=== PATIENT | male | born 1970 | race African-American/Black ===

== ENCOUNTER 2022-10-02 00:20 | Emergency (ER) | payer OTHER ==
[~2022-10-02] VITALS: Ht 175.3 cm; Wt 82.9 kg
[2022-10-02] MEDS ORDERED: KETOROLAC TROMETH 30 MG/ML 1ML VIAL IM ONE (02:00)
== END 2022-10-02 02:13 | disposition home or self-care (01) ==
LOC: ER 00:20
DX: G89.29 Other chronic pain (principal); M54.59 Other low back pain; J45.909 Unspecified asthma, uncomplicated; F17.210 Nicotine dependence, cigarettes, uncomplicated
CPT/HCPCS: 74176; 96372; 99285; J1885

== ENCOUNTER 2022-10-14 23:25 | Emergency (ER) | payer MEDICAID ==
[~2022-10-14] VITALS: Ht 175.3 cm; Wt 83.6 kg
[2022-10-15 00:20] VITALS: BP 126/84
[2022-10-15 01:32] LABS: Urine Bacteria NONE SEEN /hpf (None Seen); Urine Blood Negative /uL (Negative); Urine Mucus FEW (None Seen); Urine Specific Gravity 1.031 (1.001-1.035); Urine WBC 1 /hpf (0 - 3)
== END 2022-10-15 01:48 | disposition home or self-care (01) ==
LOC: ER 23:25
DX: N50.812 Left testicular pain (principal)
CPT/HCPCS: 81001

== ENCOUNTER 2022-11-02 21:34 | Emergency (ER) | payer MEDICAID ==
[~2022-11-02] VITALS: Ht 160 cm; Wt 83.0 kg
[2022-11-03] MEDS ORDERED: FLUT1SPR9 (00:37)
[2022-11-03] MEDS ORDERED: CYCL-837 PO (00:37)
[2022-11-03] MEDS ORDERED: IBUP800T27 PO (00:37)
[2022-11-03] MEDS ORDERED: KETOROLAC TROMETH 60MG/2ML VIAL IM ONE (00:45)
[2022-11-03 05:46] VITALS: BP 136/86
== END 2022-11-03 01:17 | disposition home or self-care (01) ==
LOC: ER 21:34
DX: G89.29 Other chronic pain (principal); M54.89 Other dorsalgia; J30.9 Allergic rhinitis, unspecified; Z79.899 Other long term (current) drug therapy
CPT/HCPCS: 72100; 96372; 99283; J1885

== ENCOUNTER 2022-12-14 21:00 | Emergency (ER) | payer MEDICAID ==
[~2022-12-14] VITALS: Ht 175.3 cm; Wt 84.0 kg
[~2022-12-14 21:00] MED LIST: ALBUAER3 IN; AMOX875T4 PO; AUG875T PO; BACL10TA PO; CIPRSUS OT; COR10OTS OT; COROSUS LEFT EAR; CYCL-837 PO; CYCL-839 PO; FLUT1SPR9; IBU600T PO; IBUP-1456 PO; PRED20TA2 PO
[2022-12-14] MEDS ORDERED: ACETAMINOPHEN 500 MG TAB PO ONE (21:30)
[2022-12-15] MEDS ORDERED: KETOROLAC TROMETH 30 MG/ML 1ML VIAL IM ONE (02:00)
[2022-12-15 03:12] VITALS: BP 108/60
== END 2022-12-15 03:17 | disposition home or self-care (01) ==
LOC: ER 21:05 → MERGE 21:05 → ER 12-15 03:16
DX: R51.9 Headache, unspecified (principal); Z98.890 Other specified postprocedural states; Z79.1 Long term (current) use of non-steroidal anti-inflammatories (NSAID); Z79.899 Other long term (current) drug therapy
CPT/HCPCS: 96372; 99283; J1885

== ENCOUNTER 2023-05-21 02:30 | Emergency (ER) | payer MEDICAID ==
[~2023-05-21] VITALS: Ht 175.3 cm; Wt 82.7 kg
[~2023-05-21 02:30] MED LIST changes: +IBUP-1454 PO; +IBUP-1455 PO
[2023-05-21 02:40] VITALS: BP 141/83; PULSE 81; RESP 17; TEMP 98.1; O2SAT 81
[2023-05-21] MEDS ORDERED: IBUP1TAB5 PO (03:17)
[2023-05-21] MEDS ORDERED: CYCL-611 PO (03:17)
== END 2023-05-21 03:46 | disposition home or self-care (01) ==
LOC: ER 02:30
DX: M54.42 Lumbago with sciatica, left side (principal); M54.41 Lumbago with sciatica, right side; M62.830 Muscle spasm of back; Z76.0 Encounter for issue of repeat prescription

== ENCOUNTER 2023-06-16 02:10 | Emergency (ER) | payer MEDICAID ==
[~2023-06-16] VITALS: Ht 175.3 cm; Wt 86.0 kg
[~2023-06-16 02:10] MED LIST changes: +CYCL-611 PO; +IBUP1TAB5 PO
[2023-06-16] MEDS ORDERED: KETOROLAC TROMETH 30 MG/ML 1ML VIAL IM ONE (03:30)
[2023-06-16 04:45] VITALS: BP 135/91; PULSE 84; RESP 19; TEMP 97.8; O2SAT 98
== END 2023-06-16 04:46 | disposition home or self-care (01) ==
LOC: ER 02:10
DX: G43.909 Migraine, unspecified, not intractable, without status migrainosus (principal); H92.03 Otalgia, bilateral; Z79.1 Long term (current) use of non-steroidal anti-inflammatories (NSAID); Z79.2 Long term (current) use of antibiotics; Z79.899 Other long term (current) drug therapy
CPT/HCPCS: 96372; 99283; J1885

== ENCOUNTER 2023-08-03 07:46 | Emergency (ER) | payer MEDICAID ==
[~2023-08-03] VITALS: Ht 175.3 cm; Wt 81.7 kg
[2023-08-03 08:04] VITALS: BP 124/81; PULSE 72; RESP 18; TEMP 98.6; O2SAT 98
[2023-08-03] MEDS ORDERED: MELO7.5T7 PO (09:09)
[2023-08-03] MEDS ORDERED: CYCL-837 PO (09:09)
== END 2023-08-03 09:11 | disposition home or self-care (01) ==
LOC: ER 07:46
DX: M54.16 Radiculopathy, lumbar region (principal)

== ENCOUNTER 2023-09-02 22:18 | Emergency (ER) | payer MEDICAID ==
[~2023-09-02] VITALS: Ht 175.3 cm; Wt 78.3 kg
[~2023-09-02 22:18] MED LIST changes: +MELO7.5T7 PO
[2023-09-03] MEDS: KETOROLAC TROMETH 60MG/2ML VIAL IM ONE (01:00)
[2023-09-03] MEDS ORDERED: BACL10TA PO (01:02)
[2023-09-03] MEDS ORDERED: HYDR-4902 PO (01:02)
[2023-09-03 01:24] VITALS: BP 144/85; PULSE 65; RESP 16; TEMP 98.2; O2SAT 95
[2023-09-03] MEDS: DexAMETHasone SOD PHOS 10MG/1ML VIAL INJ IM ONE (01:54)
[2023-09-03] MEDS: HYDROcodone-ACET 5/325MG TAB PO ONE (01:54)
== END 2023-09-03 04:07 | disposition home or self-care (01) ==
LOC: ER 22:18
DX: G89.29 Other chronic pain (principal); M25.512 Pain in left shoulder; M25.511 Pain in right shoulder; M54.50 Low back pain, unspecified; Z79.1 Long term (current) use of non-steroidal anti-inflammatories (NSAID); Z79.2 Long term (current) use of antibiotics; Z79.899 Other long term (current) drug therapy
CPT/HCPCS: 73030; 96372; 99284; J1100; J1885

== ENCOUNTER 2023-10-14 19:41 | Emergency (ER) | payer MEDICAID ==
[~2023-10-14] VITALS: Ht 175.3 cm; Wt 79.5 kg
[~2023-10-14 19:41] MED LIST changes: +GABA-339 PO; +HYDR-4902 PO; +OFL50TS OT
[2023-10-14 19:50] VITALS: BP 142/94; PULSE 107; RESP 18; TEMP 96.2
[2023-10-14 21:40] VITALS: O2SAT 100
[2023-10-14] MEDS ORDERED: CYCL-839 PO (21:44)
[2023-10-14] MEDS ORDERED: IBUP-1456 PO (21:44)
[2023-10-14] MEDS ORDERED: HYDR-4902 PO (21:44)
[2023-10-14] MEDS: HYDROcodone-ACET 10/325MG TAB PO ONE (21:58)
== END 2023-10-14 22:17 | disposition home or self-care (01) ==
LOC: ER 19:41
DX: G89.29 Other chronic pain (principal); M54.50 Low back pain, unspecified; W01.0XXA Fall on same level from slipping, tripping and stumbling without subsequent striking against object, initial encounter; Y93.89 Activity, other specified; Y92.89 Other specified places as the place of occurrence of the external cause; Y99.8 Other external cause status

== ENCOUNTER 2023-11-17 22:26 | Emergency (ER) | payer MEDICAID | END 2023-11-17 23:37 | disposition left against medical advice (07) | LOC: ER 22:26 | DX: H92.01 Otalgia, right ear (principal); Z53.21 Procedure and treatment not carried out due to patient leaving prior to being seen by health care provider ==

== ENCOUNTER 2024-01-20 15:19 | Emergency (ER) | payer MEDICAID | END 2024-01-20 15:55 | disposition left against medical advice (07) | LOC: ER 15:19 | DX: H92.09 Otalgia, unspecified ear (principal); Z53.21 Procedure and treatment not carried out due to patient leaving prior to being seen by health care provider ==

== ENCOUNTER 2024-07-07 07:56 | Emergency (ER) | payer MEDICAID ==
[~2024-07-07] VITALS: Ht 175.3 cm; Wt 79.4 kg
[2024-07-07 08:36] VITALS: BP 134/87; PULSE 83; RESP 20; TEMP 97.5; O2SAT 98
--- NOTE | 2024-07-07 08:42 | ED.PDOC ---
Back pain HPI HPI Comments A 53 YEAR OLD MALE PRESENTS TO THE ED WITH COMPLAINT OF LOWER BACK PAIN THAT RADIATES DOWN LEFT LEG. PATIENT STATES HE HAS BEEN EXPERIENCING LOWER BACK PAIN THAT RADIATES DOWN HIS LEFT LEG OFF AND ON FOR THE PAST 2 YEARS WITH WORSENING PAIN OVER THE PAST 3 DAYS. PATIENT DENIES SADDLE ANESTHESIA, URINARY INCONTINENCE, BOWEL INCONTINENCE, FEVER, CHILLS, SHORTNESS OF BREATH, CHEST PAIN, ABDOMINAL PAIN, NAUSEA, VOMITING, HEADACHE, OR OTHER COMPLAINTS. NO OTHER SYMPTOMS OR MODIFYING FACTORS AT THIS TIME. PATIENT IS ALERT, ORIENTED X 4, AND HAS STEADY GAIT. Chief Complaint: Back Pain Time Seen by MD: 08:09 Primary Care Provider: NONE Reviewed Notes: Nurses Notes, Medications, Allergies Allergies: Coded Allergies: NO KNOWN ALLERGIES (Unverified , 10/02/22) Home Meds Active Scripts Hydrocodone-Acetaminophen (Hydrocodone Bitartrate/AC 5-325 mg) 1 Tab Tab, 1 TAB PO Q6HPRN PRN, #6 TAB As needed for severe pain Prov:VALDO ACOSTA PAC 10/14/23 Cyclobenzaprine Hcl (Cyclobenzaprine Hcl) 10 Mg Tab, 1 TAB PO Q8HR, #15 TAB as needed for pain Prov:VALDO ACOSTA PAC 10/14/23 Ibuprofen (Ibuprofen) 800 Mg Tab, 1 TAB PO TID, #30 TAB Prov:VALDO ACOSTA PAC 10/14/23 Ibuprofen Micronized (Ibuprofen) 600 Mg Tab, 1 TAB PO Q6HPRN PRN, #20 TAB As needed for pain Prov:BROOKE CARRILLO Q CHEMIST ASSISTANT 09/12/23 Ofloxacin (Otic) (FLOXIN OTIC) [address], 5 DROP OT BID for 10 Days, #10 ML Prov:BROOKE CARRILLO Q CHEMIST ASSISTANT 09/12/23 Amoxicillin & Pot Clavulanate (AUGMENTIN TABLET) 875 Mg Tb, 1 TAB PO BID for 10 Days, #20 TAB Prov:BROOKE CARRILLO Q CHEMIST ASSISTANT 09/12/23 Gabapentin (Gabapentin) 600 Mg Tab, 1 TAB PO BID, #30 TAB Prov:MAXIME VELEZ PA 09/08/23 Ibuprofen (Ibuprofen) 800 Mg Tab, 1 TAB PO TID, #30 TAB Prov:MAXIME VELEZ PA 09/08/23 Baclofen (Baclofen) 10 Mg Tab, 10 MG PO TID, #15 TAB As needed for muscle spasm Prov:BROOKE CARRILLO CHEMIST ASSISTANT 09/03/23 Ibuprofen Micronized (Ibuprofen) 600 Mg Tab, 1 TAB PO Q6HPRN PRN, #20 TAB As needed for mild to moderate pain Prov:BROOKE CARRILLO CHEMIST ASSISTANT 09/03/23 Cyclobenzaprine Hcl (Cyclobenzaprine Hcl) 5 Mg Tab, 1 TAB PO QPM for 30 Days, #30 TAB 0 Refills Prov:GEORGIA TREADWELL CHEMIST ASSISTANT 08/03/23 Meloxicam (Meloxicam) 7.5 Mg Tab, 1 TAB PO DAILY for 30 Days, #30 TAB 0 Refills Prov:GEORGIA TREADWELL CHEMIST ASSISTANT 08/03/23 Cyclobenzaprine HCl (Cyclobenzaprine Hydrochlo) 10 Mg Tab, 1 TAB PO Q8HPRN PRN, #15 TAB As needed for muscle spasm Prov:BROOKE CARRILLO CHEMIST ASSISTANT 05/21/23 Ibuprofen Micronized (Ibuprofen) 600 Mg Tab, 1 TAB PO Q6HPRN PRN, #20 TAB as needed for pain Prov:BROOKE CARRILLO CHEMIST ASSISTANT 05/21/23 Ibuprofen (Ibuprofen) 600 Mg Tab, 1 TAB PO TID, #30 TAB As needed for pain Prov:BROOKE CARRILLO CHEMIST ASSISTANT 02/22/23 Jpykckoa-Tqpufneix-My (Otic) (Cortisporin Otic Soln) [address], 4 DROP OT QID for 7 Days, #1 BOTTLE 0 Refills Prov:SHIRA MARTIN 02/11/23 Ibuprofen Micronized (Ibuprofen) 800 Mg Tab, 800 MG PO Q6HP PRN, #30 TAB 0 Refills Prov:SHIRA MARTIN 02/11/23 Ibuprofen (Ibuprofen) 800 Mg Tab, 1 TAB PO TID PRN, #30 TAB 0 Refills Prov:TRAN FOURNIER 12/20/22 Cyclobenzaprine Hcl (Cyclobenzaprine Hcl) 5 Mg Tab, 1 TAB PO QPM PRN, #14 TAB 0 Refills Prov:TRAN FOURNIER 12/20/22 Cyclobenzaprine Hcl (Cyclobenzaprine Hcl) 10 Mg Tab, 1 TAB PO BID, #10 TAB as needed for musclce spasm Prov:BROOKE CARRILLO CHEMIST ASSISTANT 12/13/22 Ibuprofen Micronized (MOTRIN TABLET) 600 Mg Tb, 1 TAB PO TID PRN, #20 TAB as needed for pain Prov:YUAN CARRILLOA Q CHEMIST ASSISTANT 12/13/22 Stbvvkhd-Zsmwcpfuy-Bh (Otic) (Cortisporin Otic Soln) [address], 1 DROP OT QID for 10 Days, #1 DROP Prov:YUAN CARRILLOA Q CHEMIST ASSISTANT 12/13/22 Amoxicillin & Pot Clavulanate (AUGMENTIN TABLET) 875 Mg Tb, 1 TAB PO BID for 10 Days, #20 TAB Prov:CARRILLODOMENICALDA Q CHEMIST ASSISTANT 12/13/22 Fluticasone Propionate (Nasal) (Flonase Allergy Relief Ch) 50 Mcg/Act Spr, 2 S PRAYS NA BID PRN, #1 SPRAY 0 Refills Prov:TRAN FOURNIER 11/03/22 Ibuprofen (Ibuprofen) 800 Mg Tab, 1 TAB PO TID PRN, #30 TAB 0 Refills Prov:TRAN FOURNIER 11/03/22 Cyclobenzaprine Hcl (Cyclobenzaprine Hcl) 5 Mg Tab, 1 TAB PO QPM, #14 TAB 0 Refills Prov:TRAN FOURNIER 11/03/22 Exrvhuha-Ztlgnliml-Zj (Otic) (Cortisporin Otic Susp) [address], 3 DROP LEFT EAR TID for 7 Days, #10 ML Prov:TONY NGUYEN DO 08/31/22 Baclofen (Baclofen) 10 Mg Tab, 10 MG PO BID, #20 TAB Prov:MAXIME VELEZ 08/19/22 Ciprofloxacin-Hydrocortisone (Cipro Hc 0.2-1 %) 1 Maryjo Maryjo, 3 DROP OT BID, #5 ML Prov:MAXIME VELEZ 08/05/22 Albuterol Sulfate (VENTOLIN MDI) 90 Mcg Ih, 2 PUFF IN Q4HPRN, #1 INH 0 Refills Prov:TRAN FOURNIER 05/25/22 Prednisone (Prednisone) 20 Mg Tab, 20 MG PO BID for 5 Days, #10 MG 0 Refills Prov:TRAN FOURNIER 05/25/22 Amoxicillin & Pot Clavulanate (Amoxicillin/Potassium Cla) 875 Mg Tab, 1 TAB PO BID for 7 Days, #14 TAB 0 Refills Prov:TRAN FOURNIER 05/25/22 Ibuprofen Micronized (MOTRIN TABLET) 600 Mg Tb, 600 MG PO TID PRN for 7 Days, #21 TAB *Black box warning-NSAIDS can increase risk of IN & hypertension, GI irritation, ulceration, bleed, perferation. Do not use post cardiac surgery. Use short duration/lowest effective dose. Prov:ARAVIND HARPER MD 10/08/21 Information Source: Patient Mode of Arrival: Ambulatory Timing: Days Duration: Since onset, Days Location of Back pain: (B) Lumbar Radiates to: Anterior: (L) Buttocks, (L) Calf, (L) Thigh Radiates to: Posterior: (L) Buttocks, (L) Calf, (L) Thigh Radiates to: Medial: (L) Buttocks, (L) Calf, (L) Thigh Radiates to: Lateral: (L) Buttocks, (L) Calf, (L) Thigh Severity: Moderate Prehospital treatment: None Quality: Aching, Burning, Cramping Onset: Spontaneous History of: Chronic Back Pain Modifying Factors: Movement Associated signs and symptoms: None Past Medical History Past Medical History (Other): CHRONIC LOWER BACK PAIN Surgical History: Denies all surgeries Family History Family History: Reviewed,noncontributory to illness Social History Smoker: Cigarettes Alcohol: Denies ETOH Use Drugs: Denies Drug Use Lives In: Home Constitutional: denies: chills, diaphoresis, fatigue, fever, malaise, sweats, weakness, others EENTM: denies: blurred vision, double vision, ear bleeding, ear discharge, ear drainage, ear pain, ear ringing, eye pain, eye redness, hearing loss, mouth pain, mouth swelling, nasal discharge, nose bleeding, nose congestion, nose pain, photophobia, tearing, throat pain, throat swelling, voice changes, others Respiratory: denies: cough, hemoptysis, orthopnea, SOB at rest, shortness of breath, SOB with excertion, stridor, wheezing, others Cardiovascular: denies: chest pain, dizzy spells, diaphoresis, Dyspnea on exertion, edema, irregular heart beat, left arm pain, lightheadedness, palpitations, PND, syncope, others Gastrointestinal: denies: abdomen distended, abdominal pain, blood streaked bowels, constipated, diarrhea, dysphagia, difficulty swallowing, hematemesis, melena, nausea, poor appetite, poor fluid intake, rectal bleeding, rectal pain, vomiting, others Genitourinary: denies: burning, dysuria, flank pain, frequency, hematuria, incontinence, penile discharge, penile sore, pain, testicle pain, testicle swelling, urgency, others Neurological: denies: dizziness, fainting, headache, left sided numbness, left sided weakness, numbness, paresthesia, pre-existing deficit, right sided numbness, right sided weakness, seizure, speech problems, tingling, tremors, weakness, others Musculoskeletal: reports: back pain (LOWER BACK PAIN THAT RADIATES DOWN LEFT LEG), muscle pain; denies: gout, joint pain, joint swelling, muscle stiffness, neck pain, others Integumetry: denies: bruises, change in color, change in hair/nails, dryness, laceration, lesions, lumps, rash, wounds, others Allergic/Immunocompromised: denies: Difficulty Healing, Frequent Infections, Hives, Itching, others Hematologic/Lymphatic: denies: anemia, blood clots, easy bleeding, easy bruising, swollen glands, others Endocrine: denies: excessive hunger, excessive sweating, excessive thirst, excessive urination, flushing, intolerance to cold, intolerance to heat, unexplained weight gain, unexplained weight loss, others Psychiatric: denies: anxiety, bipolar disorder, depression, hopeless, panic disorder, schizophrenia, sleepless, suicidal, others All Other Systems: Reviewed and Negative Physical Exam General Appearance: No Apparent Distress, Normal HEENT: Normal ENT Inspection, PERRL/EOMI, Pharynx Normal, TMs Normal Neck: Full Range of Motion, Non-Tender, Normal, Normal Inspection Respiratory: Chest Non-Tender, Lungs Clear, No Accessory Muscle Use, No Respiratory Distress, Normal Breath Sounds Cardiovascular: No Edema, No JVD, No Murmur, No Gallop, Normal Peripheral Pulses, Regular Rate/Rhythm Breast Exam: Deferred Gastrointestinal: No Organomegaly, Non Tender, No Pulsatile Mass, Normal Bowel Sounds, Soft Genitalia: Deferred Pelvic: Deferred Rectal: Deferred Extremities: No calf tenderness, Normal capillary refill, Normal inspection, Normal range of motion, Non-tender, No pedal edema Musculoskeletal : Location: Bilateral Extremity Location: Back Apperance: Tenderness: Moderate (MUSCLE SPASM ON LOWER BACK, NO BONY TENDER NESS, SWELLING AND DEFORMITY. ) Neurologic: Alert, electric deicer inspector II-XII nml as Tested, No Motor Deficits, Normal Affect, Normal Mood, No Sensory Deficits Cerebellar Function: Normal Reflexes: Normal Skin: Dry, Normal Color, Warm Peripheral Pulses: 2+ carotid (R), 2+ carotid (L) Lymphatic: No Adenopathy Was a procedure done? Was a procedure done?: No Back Pain Differential Dx Differential Diagnosis: Musculoskeletal Pain Other Differential Diagnosis DDD, LUMBAR RADICULOPATHY, SCIATICA X-Ray, Labs, Meds, VS Vital Signs Date Time Temp Pulse Resp B/P (MAP) Pulse Ox O2 Delivery O2 Flow Rate FiO2 07/07/24 08:36 83 20 98 Room Air 07/07/24 08:36 97.5 83 20 134/87 (103) 98 97.5 07/07/24 08:02 97.5 83 20 134/87 (103) 98 Current Medications Medications (Trade) Dose Ordered Sig/Jennifer Route Start Time Stop Time Status Last Admin Ketorolac Tromethamine (Toradol Injection) 60 mg ONCE ONCE IM 07/07/24 08:45 07/07/24 08:46 DC 07/07/24 08:48 INDICATION: LOW BACK PAIN TO LOWER LEG COMPARISON: XY LUMBAR SPINE 3 VIEW on DOS: 11/02/22 TECHNIQUE: 3 views of the lumbar spine were obtained. FINDINGS: The lumbar vertebral alignment is normal. The intervertebral disc spaces are well-maintained. No significant facet arthropathy is noted. No acute fracture, vertebral compression deformity or aggressive osseous lesions. The paravertebral soft tissues are grossly unremarkable. IMPRESSION: No acute fracture. ATED BY: ELINA BAGLEY MD DICTATED DATE/TIME: 07/07/2450 SIGNED BY: ELINA BAGLEY MD SIGNED DATE/TIME: 07/07/2450 CC: X-Ray, Labs, Meds, VS Comment EXTERNAL MEDICAL RECORDS REVIEWED: [NONE] INDEPENDENT HISTORIANS: [NONE] SOCIAL DETERMINANTS OF HEALTH: [CURRENTLY HOMELESS] LABS ORDERED: NONE REVIEWED AND INTERPRETED RESULTS: NONE IMAGING ORDERED: XR L-SPINE TREATMENTS ORDERED: TORADOL 60 MG IM, FOOD AND DRINK GIVEN TO PATENT. PROCEDURES PERFORMED: NONE CRITICAL CARE TIME: NONE I HAVE DISCUSSED THE PATIENT WITH THE ATTENDING PHYSICIAN DR. WREN AND HE AGREES WITH THE PATIENT'S PLAN OF CARE AND DISPOSITION. BASED ON HISTORY OF PRESENT ILLNESS, AND PHYSICAL EXAM, PATIENT WILL BE DISCHARGED HOME. DISCUSSED PLAN FOR DISCHARGE HOME WITH RX []. MEDICATION WARNINGS GIVEN. SHARED DECISION MAKING: PATIENT INSTRUCTED TO FOLLOW UP WITH PRIMARY CARE PROVIDER IN 1-2 DAYS FOR RE-EVALUATION OF SYMPTOMS. PATIENT VERBALIZES U NDERSTANDING TO RETURN TO ED FOR NEW OR WORSENING SYMPTOMS OR IF FOLLOW UP WITH PCP CANNOT BE OBTAINED. PATIENT FEELS COMFORTABLE GOING HOME AT THIS TIME. ALL QUESTIONS ADDRESSED AT TIME OF DISCHARGE. Images Reviewed?: Images reviewed and evaluated by me Time of 1ST Reevaluation: 09:04 Reevaluation 1ST: Improved Patient Education/Counseling: Diagnosis, Treatment, Need For Follow Up Family Education/Counseling: Diagnosis, Treatment, Need For Follow Up Medical Screening: No EMC Exist At This Time Departure 1 Departure Time of Disposition: 09:04 Impression: Primary Impression: DDD (degenerative disc disease), lumbar Qualified Codes: M51.362 - Other intervertebral disc degeneration, lumbar region with discogenic back pain and lower extremity pain Additional Impressions: Lumbar radiculopathy Acute exacerbation of chronic low back pain Disposition: 01 HOME / SELF CARE / HOMELESS Condition: Stable Additional Instructions: FOLLOW-UP WITH PCP IN 1 TO 2 DAYS FOR MRI STUDY. TAKE MEDICATIONS PRESCRIBED. RETURN TO ED FOR ANY NEW OR WORSENING SYMPTOMS. e-Prescriptions Baclofen (Baclofen) 10 Mg Tab 10 MG PO BID, #20 TAB Prov: MAXIME VELEZ 07/07/24 Ibuprofen (Ibuprofen) 800 Mg Tab 1 TAB PO TID, #30 TAB Prov: MAXIME VELEZ 07/07/24 Discharged With: Self Critical Care Note Critical Care Time?: No Stability Stability form required: No I personally scribed for MAXIME VELEZ ([email or web address]) on 07/07/24 at 08:42. Electronically submitted by Trae Gonsales ([email or web address]). I personally scribed for MAXIME VELEZ ([email or web address]) on 07/07/24 at 09:00. Electronically submitted by Trae Gonsales ([email or web address]). MAXIME VELEZ Jul 07, 2024 08:42
[2024-07-07] MEDS: KETOROLAC TROMETH 60MG/2ML VIAL IM ONE (08:48)
--- NOTE | 2024-07-07 08:53 | DVH ---
INDICATION: LOW BACK PAIN TO LOWER LEG COMPARISON: XY LUMBAR SPINE 3 VIEW on DOS: 11/02/22 TECHNIQUE: 3 views of the lumbar spine were obtained. FINDINGS: The lumbar vertebral alignment is normal. The intervertebral disc spaces are well-maintained. No significant facet arthropathy is noted. No acute fracture, vertebral compression deformity or aggressive osseous lesions. The paravertebral soft tissues are grossly unremarkable. IMPRESSION: No acute fracture.
== END 2024-07-07 09:11 | disposition home or self-care (01) ==
LOC: ER 07:56
DX: M51.16 Intervertebral disc disorders with radiculopathy, lumbar region (principal); M54.50 Low back pain, unspecified; F17.210 Nicotine dependence, cigarettes, uncomplicated; G89.29 Other chronic pain
CPT/HCPCS: 72100; 96372; 99283; J1885

== ENCOUNTER 2024-08-27 03:56 | Emergency (ER) | payer MEDICAID ==
[~2024-08-27] VITALS: Ht 175.3 cm; Wt 83.7 kg
--- NOTE | 2024-08-27 04:22 | ED.PDOC ---
Back pain HPI HPI Comments PATIENT COMES WITH C/C OF ACUTE ON CHRONIC LOWER BACK PAIN. PATIENT STATES HE FELL AND HURT IT A FEW MONTHS AGO BUT THE PAIN GO IS WORSE TODAY. PATIENT REPORTS THAT HE HAS CHRONIC BACK PAIN AND PREVIOUS HERNIA REPAIR. DENIES NUMBNESS, WEAKNESS, SADDLE ANESTHESIA, LOSS OF BOWEL OR BLADDER CONTROL. Chief Complaint: Back Pain Time Seen by MD: 04:02 Primary Care Provider: NONE Reviewed Notes: Nurses Notes, Medications, Allergies Allergies: Coded Allergies: NO KNOWN ALLERGIES (Unverified , 10/02/22) Home Meds Active Scripts Baclofen (Baclofen) 10 Mg Tab, 10 MG PO BID, #20 TAB Prov:MAXIME VELEZ 07/07/24 Ibuprofen (Ibuprofen) 800 Mg Tab, 1 TAB PO TID, #30 TAB Prov:MAXIME VELEZ 07/07/24 Hydrocodone-Acetaminophen (Hydrocodone Bitartrate/AC 5-325 mg) 1 Tab Tab, 1 TAB PO Q6HPRN PRN, #6 TAB As needed for severe pain Prov:VALDO ACOSTA PAC 10/14/23 Cyclobenzaprine Hcl (Cyclobenzaprine Hcl) 10 Mg Tab, 1 TAB PO Q8HR, #15 TAB as needed for pain Prov:VALDO ACOSTA PAC 10/14/23 Ibuprofen (Ibuprofen) 800 Mg Tab, 1 TAB PO TID, #30 TAB Prov:VALDO ACOSTA PAC 10/14/23 Ibuprofen Micronized (Ibuprofen) 600 Mg Tab, 1 TAB PO Q6HPRN PRN, #20 TAB As needed for pain Prov:BROOKE CARRILLO Q [employer]PECT[employer] 09/12/23 Ofloxacin (Otic) (FLOXIN OTIC) [address], 5 DROP OT BID for 10 Days, #10 ML Prov:BROOKE CARRILLO Q [employer] 09/12/23 Amoxicillin & Pot Clavulanate (AUGMENTIN TABLET) 875 Mg Tb, 1 TAB PO BID for 10 Days, #20 TAB Prov:BROOKE CARRILLO Q [employer] 09/12/23 Gabapentin (Gabapentin) 600 Mg Tab, 1 TAB PO BID, #30 TAB Prov:MAXIME VELEZ 09/08/23 Ibuprofen (Ibuprofen) 800 Mg Tab, 1 TAB PO TID, #30 TAB Prov:MAXIME VELEZ 09/08/23 Baclofen (Baclofen) 10 Mg Tab, 10 MG PO TID, #15 TAB As needed for muscle spasm Prov:BROOKE CARRILLO Q [employer] 09/03/23 Ibuprofen Micronized (Ibuprofen) 600 Mg Tab, 1 TAB PO Q6HPRN PRN, #20 TAB As needed for mild to moderate pain Prov:BROOKE CARRILLO Q [employer] 09/03/23 Cyclobenzaprine Hcl (Cyclobenzaprine Hcl) 5 Mg Tab, 1 TAB PO QPM for 30 Days, #30 TAB 0 Refills Prov:GEORGIA TREADWELL [employer] 08/03/23 Meloxicam (Meloxicam) 7.5 Mg Tab, 1 TAB PO DAILY for 30 Days, #30 TAB 0 Refills Prov:GEORGIA TREADWELL [employer] 08/03/23 Cyclobenzaprine HCl (Cyclobenzaprine Hydrochlo) 10 Mg Tab, 1 TAB PO Q8HPRN PRN, #15 TAB As needed for muscle spasm Prov:CARRILLOBROOKE [employer] 05/21/23 Ibuprofen Micronized (Ibuprofen) 600 Mg Tab, 1 TAB PO Q6HPRN PRN, #20 TAB as needed for pain Prov:BROOKE CARRILLO Q [employer] 05/21/23 Ibuprofen (Ibuprofen) 600 Mg Tab, 1 TAB PO TID, #30 TAB As needed for pain Prov:BROOKE CARRILLO [employer] 02/22/23 Ougvzhqw-Bvuxlyfmu-Zp (Otic) (Cortisporin Otic Soln) [address], 4 DROP OT QID for 7 Days, #1 BOTTLE 0 Refills Prov:SHIRA MARTIN 02/11/23 Ibuprofen Micronized (Ibuprofen) 800 Mg Tab, 800 MG PO Q6HP PRN, #30 TAB 0 Refills Prov:SHIRA MARTIN 02/11/23 Ibuprofen (Ibuprofen) 800 Mg Tab, 1 TAB PO TID PRN, #30 TAB 0 Refills Prov:TRAN FOURNIER 12/20/22 Cyclobenzaprine Hcl (Cyclobenzaprine Hcl) 5 Mg Tab, 1 TAB PO QPM PRN, #14 TAB 0 Refills Prov:TRAN FOURNIER 12/20/22 Cyclobenzaprine Hcl (Cyclobenzaprine Hcl) 10 Mg Tab, 1 TAB PO BID, #10 TAB as needed for musclce spasm Prov:BROOKE CARRILLO Q [employer] 12/13/22 Ibuprofen Micronized (MOTRIN TABLET) 600 Mg Tb, 1 TAB PO TID PRN, #20 TAB as needed for pain Prov:BROOKE CARRILLO Q [employer] 12/13/22 Ysbheufm-Iktlfdujm-Zy (Otic) (Cortisporin Otic Soln) [address], 1 DROP OT QID for 10 Days, #1 DROP Prov:BROOKE CARRILLO Q [employer] 12/13/22 Amoxicillin & Pot Clavulanate (AUGMENTIN TABLET) 875 Mg Tb, 1 TAB PO BID for 10 Days, #20 TAB Prov:BROOKE CARRILLO Q INS[employer] 12/13/22 Fluticasone Propionate (Nasal) (Flonase Allergy Relief Ch) 50 Mcg/Act Spr, 2 SPRAYS NA BID PRN, #1 SPRAY 0 Refills Prov:TRAN FOURNIER 11/03/22 Ibuprofen (Ibuprofen) 800 Mg Tab, 1 TAB PO TID PRN, #30 TAB 0 Refills Prov:TRAN FOURNIER 11/03/22 Cyclobenzaprine Hcl (Cyclobenzaprine Hcl) 5 Mg Tab, 1 TAB PO QPM, #14 TAB 0 Refills Prov:TRAN FOURNIER 11/03/22 Tfffyeny-Ocorccuuv-Qy (Otic) (Cortisporin Otic Susp) [address], 3 DROP LEFT EAR TID for 7 Days, #10 ML Prov:TONY NGUYEN DO 08/31/22 Baclofen (Baclofen) 10 Mg Tab, 10 MG PO BID, #20 TAB Prov:MAXIME VELEZ 08/19/22 Ciprofloxacin-Hydrocortisone (Cipro Hc 0.2-1 %) 1 Maryjo Maryjo, 3 DROP OT BID, #5 ML Prov:MAXIME VELEZ 08/05/22 Albuterol Sulfate (VENTOLIN MDI) 90 Mcg Ih, 2 PUFF IN Q4HPRN, #1 INH 0 Refills Prov:TRAN FOURNIER 05/25/22 Prednisone (Prednisone) 20 Mg Tab, 20 MG PO BID for 5 Days, #10 MG 0 Refills Prov:TRAN FOURNIER 05/25/22 Amoxicillin & Pot Clavulanate (Amoxicillin/Potassium Cla) 875 Mg Tab, 1 TAB PO BID for 7 Days, #14 TAB 0 Refills Prov:TRAN FOURNIER 05/25/22 Ibuprofen Micronized (MOTRIN TABLET) 600 Mg Tb, 600 MG PO TID PRN for 7 Days, #21 TAB *Black box warning-NSAIDS can increase risk of PA & hypertension, GI irritation, ulceration, bleed, perferation. Do not use post cardiac surgery. Use short duration/lowest effective dose. Prov:ARAVIND HARPER MD 10/08/21 Past Medical History PAST MEDICAL HISTORY: Denies Surgical History: Denies all surgeries Family History Family History: Reviewed,noncontributory to illness Social History Smoker: Cigarettes Alcohol: Denies ETOH Use Drugs: Denies Drug Use Lives In: Home Constitutional: denies: chills, diaphoresis, fatigue, fever, malaise, sweats, weakness, others EENTM: denies: blurred vision, double vision, ear bleeding, ear discharge, ear drainage, ear pain, ear ringing, eye pain, eye redness, hearing loss, mouth pain, mouth swelling, nasal discharge, nose bleeding, nose congestion, nose pain, photophobia, tearing, throat pain, throat swelling, voice changes, others Respiratory: denies: cough, hemoptysis, orthopnea, SOB at rest, shortness of breath, SOB with excertion, stridor, wheezing, others Gastrointestinal: denies: abdomen distended, abdominal pain, blood streaked bowels, constipated, diarrhea, dysphagia, difficulty swallowing, hematemesis, melena, nausea, poor appetite, poor fluid intake, rectal bleeding, rectal pain, vomiting, others Genitourinary: denies: burning, dysuria, flank pain, frequency, hematuria, incontinence, penile discharge, penile sore, pain, testicle pain, testicle swelling, urgency, others Neurological: denies: dizziness, fainting, headache, left sided numbness, left sided weakness, numbness, paresthesia, pre-existing deficit, right sided numbness, right sided weakness, seizure, speech problems, tingling, tremors, weakness, others Musculoskeletal: reports: back pain; denies: gout, joint pain, joint swelling, muscle pain, muscle stiffness, neck pain, others Integumetry: denies: bruises, change in color, change in hair/nails, dryness, laceration, lesions, lumps, rash, wounds, others Allergic/Immunocompromised: denies: Difficulty Healing, Frequent Infections, Hives, Itching, others Hematologic/Lymphatic: denies: anemia, blood clots, easy bleeding, easy bruising, swollen glands, others Endocrine: denies: excessive hunger, excessive sweating, excessive thirst, excessive urination, flushing, intolerance to cold, intolerance to heat, unexplained weight gain, unexplained weight loss, others Psychiatric: denies: anxiety, bipolar disorder, depression, hopeless, panic disorder, schizophrenia, sleepless, suicidal, others Physical Exam General Appearance: No Apparent Distress, Normal HEENT: Pharynx Normal Neck: Full Range of Motion, Non-Tender Respiratory: Lungs Clear, No Respiratory Distress, Normal Breath Sounds Cardiovascular: No Murmur, Normal Peripheral Pulses, Regular Rate/Rhythm Breast Exam: Deferred Gastrointestinal: No Organomegaly, Non Tender, Soft Genitalia: Deferred Pelvic: Deferred Rectal: Deferred Extremities: Normal capillary refill, Normal inspection, Normal range of motion, Non-tender, No pedal edema Musculoskeletal : Location: Bilateral Extremity Location: Back (TENDERNESS PALPATED OVER L3-L5 SPINE WITHOUT CREPITUS OR STEP-OFFS NOTED SPASMS RIGHT AND LEFT PARASPINAL MUSCLES WITH MODERATE TENDERNESS STRAIGHT LEG RAISE NEGATIVE BILATERAL STRENGTH SENSORY MOTION INTACT POSITIVE PEDAL PULSES NEGATIVE FOOT DROP BILATERAL) Apperance: Normal Neurologic: Alert, stitcher tape controlled machine II-XII nml as Tested, No Motor Deficits, Normal Affect, Normal Mood, No Sensory Deficits Cerebellar Function: Normal Reflexes: Normal Skin: Dry, Normal Color, Warm Lymphatic: No Adenopathy Was a procedure done? Was a procedure done?: No Back Pain Differential Dx Differential Diagnosis: Fracture, Musculoskeletal Pain X-Ray, Labs, Meds, VS Vital Signs Date Time Temp Pulse Resp B/P (MAP) Pulse Ox O2 Delivery O2 Flow Rate FiO2 08/27/24 04:35 98.1 93 18 136/93 (107) 97 98.1 08/27/24 04:35 93 18 97 Room Air 08/27/24 04:16 98.0 93 18 136/93 (107) 97 Current Medications Medications (Trade) Dose Ordered Sig/Jennifer Route Start Time Stop Time Status Last Admin Acetaminophen/ Hydrocodone Bitart ([place] 5/325MG Tab) 2 tab ONCE ONCE PO 08/27/24 05:00 08/27/24 05:01 DC 08/27/24 05:02 Ketorolac Tromethamine (Toradol Injection) 60 mg ONCE ONCE IM 08/27/24 05:00 08/27/24 05:01 DC 08/27/24 05:02 X-Ray, Labs, Meds, VS Comment PATIENT GIIMPRESSION: Vertebral body height and alignment is maintained. Intervertebral disc space narrowing at L5-S1 with small osteophyte and endplate changes. Likely bilateral neural foraminal stenosis. Sacroiliac joints appear patent. Possible sclerosis more pronounced along the right sacroiliac joint. NO NOTED ACUTE FRACTURES OR SUBLUXATION YOU ON CHRONIC LUMBAR BACK PAIN. PATIENT GIVEN TORADOL 60 MG IM AND NORCO 10 MG P.O. REPORTS IMPROVEMENT PAIN AND FUNCTION REQUESTING DISCHARGE AT THIS TIME. SCRIPT BACLOFEN 10 MG B.I.D. P.R.N. AND MEDROL DOSEPAK. ADVISED TO TAKE MEDICATION PRESCRIBED SIDE EFFECTS DISCUSSED. ADVISED TO ALTERNATE BETWEEN ICE AND HEAT. FOLLOW UP WITH HIS PCP ONCE 2 DAYS CONSIDER REFERRAL TO PAIN MANAGEMENT. ER RETURN PRECAUTIONS GIVEN INCREASING PAIN, NUMBNESS, WEAKNESS, LOSS OF BOWEL OR BLADDER CONTROL OR SADDLE ANESTHESIA. PATIENT INDICATES UNDERSTANDING AGREES WITH DISCHARGE PLAN OF CARE. Time of 1ST Reevaluation: : Reevaluation 1ST: Improved Patient Education/Counseling: Diagnosis, Treatment, Prognosis, Need For Follow Up Family Education/Counseling: No Family Present Departure 1 Departure Time of Disposition: : Impression: Primary Impression: Neural foraminal stenosis of lumbar spine Additional Impression: Acute exacerbation of chronic low back pain Disposition: 01 HOME / SELF CARE / HOMELESS Condition: Stable e-Prescriptions Methylprednisolone (Medrol Dosepak) 4 Mg Gustavo 4 MG PO UD for 6 Days, #21 TAB UAD Prov: MONTY WATKINS 08/27/24 Baclofen (Baclofen) 10 Mg Tab 10 MG PO BID PRN for 7 Days, #14 TAB Prov: MONTY WATKINS 08/27/24 Discharged With: Self Critical Care Note Critical Care Time?: No Stability Stability form required: MONTY Cabrera Aug 27, 2024 04:22
[2024-08-27 04:35] VITALS: BP 136/93; PULSE 93; RESP 18; TEMP 98.1; O2SAT 97
[2024-08-27] MEDS: KETOROLAC TROMETH 60MG/2ML VIAL IM ONE (05:02)
[2024-08-27] MEDS: HYDROcodone-ACET 5/325MG TAB PO ONE (05:02)
--- NOTE | 2024-08-27 05:15 | DVH ---
EXAM: XY LUMBAR SPINE 3 VIEW HISTORY: INJURY/PAIN COMPARISON: XY LUMBAR SPINE 3 VIEW on DOS: 07/07/24, XY LUMBAR SPINE 3 VIEW on DOS: 11/02/22 TECHNIQUE: AP and lateral views of the lumbar spine and spot lateral of the lumbosacral junction were performed. IMPRESSION: Vertebral body height and alignment is maintained. Intervertebral disc space narrowing at L5-S1 with small osteophyte and endplate changes. Likely bilateral neural foraminal stenosis. Sacroiliac joint s appear patent. Possible sclerosis more pronounced along the right sacroiliac joint.
[2024-08-27] MEDS ORDERED: BACL10TA PO (05:20)
[2024-08-27] MEDS ORDERED: METH4PAK PO (05:20)
== END 2024-08-27 05:38 | disposition home or self-care (01) ==
LOC: ER 03:56
DX: M48.061 Spinal stenosis, lumbar region without neurogenic claudication (principal); M54.50 Low back pain, unspecified; G89.29 Other chronic pain; F17.210 Nicotine dependence, cigarettes, uncomplicated; Z79.899 Other long term (current) drug therapy; Z79.52 Long term (current) use of systemic steroids; Z79.1 Long term (current) use of non-steroidal anti-inflammatories (NSAID)
CPT/HCPCS: 72100; 96372; 99283; J1885

== ENCOUNTER 2024-09-30 01:47 | Emergency (ER) | payer MEDICAID ==
[~2024-09-30] VITALS: Ht 175.3 cm; Wt 80.6 kg
[~2024-09-30 01:47] MED LIST changes: +AMOX875T3 PO
[2024-09-30 01:57] VITALS: BP 139/81; PULSE 85; RESP 16; TEMP 98.3; O2SAT 95
[2024-09-30] MEDS ORDERED: IBUP-1455 PO (02:02)
[2024-09-30] MEDS ORDERED: HYDR-4902 PO (02:02)
--- NOTE | 2024-09-30 02:03 | ED.PDOC ---
Back pain HPI HPI Comments This patient is a 53-year-old male who arrives the ED today for evaluation of low back pain concerns. Patient states he has a history of low back pain issues including sciatica. Patient has had multiple imaging studies in the past. Patient denies any recent traumatic event, but states that the pain came on yesterday has been relatively unrelenting. Patient denies any fever nausea or vomiting. Time Seen by MD: 01:49 Primary Care Provider: LIYAH Reviewed Notes: [employer] Teacher Notes Allergies: Coded Allergies: NO KNOWN ALLERGIES (Unverified , 10/02/22) Home Meds Active Scripts Ibuprofen (Ibuprofen) 800 Mg Tab, 1 TAB PO TID, #30 TAB Prov:MAXIME VELEZ 09/14/24 Amoxicillin Trihydrate (Amoxicillin) 875 Mg Tab, 1 TAB PO BID, #20 TAB Prov:MAXIME VELEZ 09/14/24 Baclofen (Baclofen) 10 Mg Tab, 10 MG PO BID, #20 TAB Prov:MAXIME VELEZ 07/07/24 Ibuprofen (Ibuprofen) 800 Mg Tab, 1 TAB PO TID, #30 TAB Prov:MAXIME VELEZ 07/07/24 Hydrocodone-Acetaminophen (Hydrocodone Bitartrate/AC 5-325 mg) 1 Tab Tab, 1 TAB PO Q6HPRN PRN, #6 TAB As needed for severe pain Prov:VALDO ACOSTA [facility] 10/14/23 Cyclobenzaprine Hcl (Cyclobenzaprine Hcl) 10 Mg Tab, 1 TAB PO Q8HR, #15 TAB as needed for pain Prov:VALDO ACOSTA [facility] 10/14/23 Ibuprofen (Ibuprofen) 800 Mg Tab, 1 TAB PO TID, #30 TAB Prov:VALDO ACOSTA [facility] 10/14/23 Ibuprofen Micronized (Ibuprofen) 600 Mg Tab, 1 TAB PO Q6HPRN PRN, #20 TAB As needed for pain Prov:BROOKE CARRILLO Q [employer]IST[employer] 09/12/23 Ofloxacin (Otic) (FLOXIN OTIC) [address], 5 DROP OT BID for 10 Days, #10 ML Prov:YUAN CARRILLOA Q [employer]IST[employer] 09/12/23 Amoxicillin & Pot Clavulanate (AUGMENTIN TABLET) 875 Mg Tb, 1 TAB PO BID for 10 Days, #20 TAB Prov:BROOKE CARRILLO [employer] 09/12/23 Gabapentin (Gabapentin) 600 Mg Tab, 1 TAB PO BID, #30 TAB Prov:MAXIME VELEZ 09/08/23 Ibuprofen (Ibuprofen) 800 Mg Tab, 1 TAB PO TID, #30 TAB Prov:MAXIME VELEZ 09/08/23 Baclofen (Baclofen) 10 Mg Tab, 10 MG PO TID, #15 TAB As needed for muscle spasm Prov:BROOKE CARRILLO Anton[employer] 09/03/23 Ibuprofen Micronized (Ibuprofen) 600 Mg Tab, 1 TAB PO Q6HPRN PRN, #20 TAB As needed for mild to moderate pain Prov:BROOKE CARRILLO Anton[employer] 09/03/23 Cyclobenzaprine Hcl (Cyclobenzaprine Hcl) 5 Mg Tab, 1 TAB PO QPM for 30 Days, #30 TAB 0 Refills Prov:GEORGIA TREADWELL [employer] 08/03/23 Meloxicam (Meloxicam) 7.5 Mg Tab, 1 TAB PO DAILY for 30 Days, #30 TAB 0 Refills Prov:GEORGIA TREADWELL [employer] 08/03/23 Cyclobenzaprine HCl (Cyclobenzaprine Hydrochlo) 10 Mg Tab, 1 TAB PO Q8HPRN PRN, #15 TAB As needed for muscle spasm Prov:CARRILLOBROOKE Antony [employer] 05/21/23 Ibuprofen Micronized (Ibuprofen) 600 Mg Tab, 1 TAB PO Q6HPRN PRN, #20 TAB as needed for pain Prov:LORENABROOKE Antony [employer] 05/21/23 Ibuprofen (Ibuprofen) 600 Mg Tab, 1 TAB PO TID, #30 TAB As needed for pain Prov:BROOKE CARRILLO [employer] 02/22/23 Kmzerlsa-Nrnfanmkq-Nz (Otic) (Cortisporin Otic Soln) [address], 4 DROP OT QID for 7 Days, #1 BOTTLE 0 Refills Prov:SHIRA MARTIN 02/11/23 Ibuprofen Micronized (Ibuprofen) 800 Mg Tab, 800 MG PO Q6HP PRN, #30 TAB 0 Refills Prov:SHIRA MARTIN 02/11/23 Ibuprofen (Ibuprofen) 800 Mg Tab, 1 TAB PO TID PRN, #30 TAB 0 Refills Prov:TRAN FOURNIER 12/20/22 Cyclobenzaprine Hcl (Cyclobenzaprine Hcl) 5 Mg Tab, 1 TAB PO QPM PRN, #14 TAB 0 Refills Prov:TRAN FOURNIER 12/20/22 Cyclobenzaprine Hcl (Cyclobenzaprine Hcl) 10 Mg Tab, 1 TAB PO BID, #10 TAB as needed for musclce spasm Prov:LORENABROOKE Q ASSISTANT [employer] 12/13/22 Ibuprofen Micronized (MOTRIN TABLET) 600 Mg Tb, 1 TAB PO TID PRN, #20 TAB as needed for pain Prov:CARRILLOBROOKE Q ASSISTANT [employer] 12/13/22 Tmtpqifl-Lmhjjpzhm-Hw (Otic) (Cortisporin Otic Soln) [address], 1 DROP OT QID for 10 Days, #1 DROP Prov:LORENADOMENICEDULizette Q ASSISTANT COUNTY [employer]ER 12/13/22 Amoxicillin & Pot Clavulanate (AUGMENTIN TABLET) 875 Mg Tb, 1 TAB PO BID for 10 Days, #20 TAB Prov:LORENABROOKE Q ASSISTANT [employer] 12/13/22 Fluticasone Propionate (Nasal) (Flonase Allergy Relief Ch) 50 Mcg/Act Spr, 2 SPRAYS NA BID PRN, #1 SPRAY 0 Refills Prov:TRAN FOURNIER 11/03/22 Ibuprofen (Ibuprofen) 800 Mg Tab, 1 TAB PO TID PRN, #30 TAB 0 Refills Prov:TRAN FOURNIER 11/03/22 Cyclobenzaprine Hcl (Cyclobenzaprine Hcl) 5 Mg Tab, 1 TAB PO QPM, #14 TAB 0 Refi lls Prov:TRAN FOURNIER 11/03/22 Leqgfzjd-Vqozugvgv-Oi (Otic) (Cortisporin Otic Susp) [address], 3 DROP LEFT EAR TID for 7 Days, #10 ML Prov:TONY NGUYEN DO 08/31/22 Baclofen (Baclofen) 10 Mg Tab, 10 MG PO BID, #20 TAB Prov:MAXIME VELEZ 08/19/22 Ciprofloxacin-Hydrocortisone (Cipro Hc 0.2-1 %) 1 Maryjo Maryjo, 3 DROP OT BID, #5 ML Prov:MAXIME VELEZ 08/05/22 Albuterol Sulfate (VENTOLIN MDI) 90 Mcg Ih, 2 PUFF IN Q4HPRN, #1 INH 0 Refills Prov:TRAN FOURNIER 05/25/22 Prednisone (Prednisone) 20 Mg Tab, 20 MG PO BID for 5 Days, #10 MG 0 Refills Prov:TRAN FOURNIER 05/25/22 Amoxicillin & Pot Clavulanate (Amoxicillin/Potassium Cla) 875 Mg Tab, 1 TAB PO BID for 7 Days, #14 TAB 0 Refills Prov:TRAN FOURNIER 05/25/22 Ibuprofen Micronized (MOTRIN TABLET) 600 Mg Tb, 600 MG PO TID PRN for 7 Days, #21 TAB *Black box warning-NSAIDS can increase risk of DC & hypertension, GI irritation, ulceration, bleed, perferation. Do not use post cardiac surgery. Use short duration/lowest effective dose. Prov:ARAVIND HARPER MD 10/08/21 Information Source: Patient Mode of Arrival: Ambulatory Timing: Days Duration: Since onset Location of Back pain: (B) Buttocks, (B) Lower back Severity: Moderate Prehospital treatment: None Quality: Aching, Sharp, Stabbing Onset: Spontaneous History of: Chronic Back Pain Past Medical History PAST MEDICAL HISTORY: Denies Surgical History: Denies all surgeries Family History Family History: Reviewed,noncontributory to illness Social History Smoker: Cigarettes Alcohol: Denies ETOH Use Drugs: Denies Drug Use Lives In: Home Constitutional: denies: chills, diaphoresis, fatigue, fever, malaise, sweats, weakness, others EENTM: denies: blurred vision, double vision, ear bleeding, ear discharge, ear drainage, ear pain, ear ringing, eye pain, eye redness, hearing loss, mouth pain, mouth swelling, nasal discharge, nose bleeding, nose congestion, nose pain, photophobia, tearing, throat pain, throat swelling, voice changes, others Respiratory: denies: cough, hemoptysis, orthopnea, SOB at rest, shortness of breath, SOB with excertion, stridor, wheezing, others Cardiovascular: denies: chest pain, dizzy spells, diaphoresis, Dyspnea on exertion, edema, irregular heart beat, left arm pain, lightheadedness, palpitations, PND, syncope, others Gastrointestinal: denies: abdomen distended, abdominal pain, blood streaked bowels, constipated, diarrhea, dysphagia, difficulty swallowing, hematemesis, melena, nausea, poor appetite, poor fluid intake, rectal bleeding, rectal pain, vomiting, others Genitourinary: denies: burning, dysuria, flank pain, frequency, hematuria, incontinence, penile discharge, penile sore, pain, testicle pain, testicle swelling, urgency, others Neurological: denies: dizziness, fainting, headache, left sided numbness, left sided weakness, numbness, paresthesia, pre-existing deficit, right sided numbness, right sided weakness, seizure, speech problems, tingling, tremors, weakness, others Musculoskeletal: reports: back pain; denies: gout, joint pain, joint swelling, muscle pain, muscle stiffness, neck pain, others Integumetry: denies: bruises, change in color, change in hair/nails, dryness, laceration, lesions, lumps, rash, wounds, others Allergic/Immunocompromised: denies: Difficulty Healing, Frequent Infections, Hives, Itching, others Hematologic/Lymphatic: denies: anemia, blood clots, easy bleeding, easy b ruising, swollen glands, others Endocrine: denies: excessive hunger, excessive sweating, excessive thirst, excessive urination, flushing, intolerance to cold, intolerance to heat, unexplained weight gain, unexplained weight loss, others Psychiatric: denies: anxiety, bipolar disorder, depression, hopeless, panic disorder, schizophrenia, sleepless, suicidal, others Physical Exam General Appearance: Moderate Distress (Due to low back pain concerns), Normal HEENT: Normal ENT Inspection, Pharynx Normal, TMs Normal Neck: Full Range of Motion, Non-Tender, Normal, Normal Inspection Respiratory: Chest Non-Tender, Lungs Clear, No Accessory Muscle Use, No Respiratory Distress, Normal Breath Sounds Cardiovascular: No Edema, No JVD, No Murmur, No Gallop, Normal Peripheral Pulses, Regular Rate/Rhythm Breast Exam: Deferred Gastrointestinal: No Organomegaly, Non Tender, No Pulsatile Mass, Normal Bowel Sounds, Soft Genitalia: Deferred Pelvic: Deferred Rectal: Deferred Extremities: No calf tenderness, Normal capillary refill, Normal inspection, Normal range of motion, Non-tender, No pedal edema Musculoskeletal : Location: Bilateral Extremity Location: Back (Diffuse bilateral lumbar tenderness to palpation throughout. Moderate hypertonicity appreciated. No step-offs noted. Patient denies any saddle paresthesia. Distal neurovascularly intact.) Apperance: Normal Neurologic: Alert, access consultant II-XII nml as Tested, No Motor Deficits, Normal Affect, Normal Mood, No Sensory Deficits Cerebellar Function: Normal Reflexes: Normal Skin: Dry, Normal Color, Warm Lymphatic: No Adenopathy Was a procedure done? Was a procedure done?: No Back Pain Differential Dx Differential Diagnosis: Other (Chronic low back pain) X-Ray, Labs, Meds, VS Comment Spent time discussing the patient's concerns with him. Advised we will medication today for pain. Patient will be sent home with a prescription for pain medications, but the patient has been advised to follow up with primary care provider for better long-term management of his chronic pain concerns. Time of 1ST Reevaluation: 01:59 Reevaluation 1ST: Improved Consultation: PCP Patient Education/Counseling: Diagnosis, Treatment Family Education/Counseling: Diagnosis, Treatment Departure 1 Departure Time of Disposition: 02:00 Impression: Primary Impression: Chronic low back pain Disposition: HOME / SELF CARE / HOMELESS Condition: Stable Additional Instructions: Advised patient utilize pain medication as needed for symptomatic relief as well as ice therapy. Patient should follow up with his primary care provider for discussions related to improved medication management of his chronic back pain concerns. e-Prescriptions Hydrocodone-Acetaminophen (Hydrocodone Bitartrate/AC 5-325 mg) 1 Tab Tab 1 TAB PO Q6HP PRN, #15 TAB Prov: REED BUSTOS PAC 09/30/24 Ibuprofen Micronized (Ibuprofen) 800 Mg Tab 800 MG PO Q8HP PRN, #20 TAB Prov: REED BUSTOS PAC 09/30/24 Discharged With: Self, Friend Critical Care Note Critical Care Time?: No Stability Stability form required: No Heart Score Heart Score: Heart Score Response (Comments) Value History N/A 0 EKG N/A 0 Age N/A 0 Risk Factors N/A 0 Troponin N/A 0 Total 0 REED BUSTOS PAC Sep 30, 2024 02:03
[2024-09-30] MEDS: HYDROcodone-ACET 10/325MG TAB PO ONE (03:04)
[2024-09-30] MEDS: KETOROLAC TROMETH 60MG/2ML VIAL IM ONE (03:05)
== END 2024-09-30 03:08 | disposition home or self-care (01) ==
LOC: ER 01:47
DX: G89.29 Other chronic pain (principal); M54.50 Low back pain, unspecified; F17.210 Nicotine dependence, cigarettes, uncomplicated; Z79.899 Other long term (current) drug therapy
CPT/HCPCS: 96372; 99283; J1885

== ENCOUNTER 2024-10-15 15:37 | Emergency (ER) | payer MEDICAID ==
[~2024-10-15] VITALS: Ht 175.3 cm; Wt 78.9 kg
[2024-10-15] MEDS: methylPREDNISolone SOD SUCC 125 MG/2 ML VL IM ONE (16:00)
[2024-10-15] MEDS: cefTRIAXone SOD 1,000 MG VL IM ONE (16:00)
--- NOTE | 2024-10-15 16:24 | ED.PDOC ---
Back pain HPI HPI Comments 53 year old male presents to the ED with chief complaint of back pain. Patient reports that he had been seen last week for chronic lower back pain exacerbation, being prescribed medication at the time, however, he was unable to picker tender his Rx due to not having an ID. Patient relays that his chronic lower back pain has been present for the past 3 years due to a slip and fall. Patient states his pain has been radiating down both of his legs. Patient denies any saddle paresthesia, weakness in bilateral legs, urinary incontinence, numbness, tingling, headache, or recent fall/injury. Chief Complaint: Back Pain Time Seen by MD: 16:17 Primary Care Provider: NONE Reviewed Notes: Nurses Notes, Medications, Allergies Allergies: Coded Allergies: NO KNOWN ALLERGIES (Unverified , 10/02/22) Home Meds Active Scripts Hydrocodone-Acetaminophen (Hydrocodone Bitartrate/AC 5-325 mg) 1 Tab Tab, 1 TAB PO Q6HP PRN, #15 TAB Prov:REED BUSTOS PAC 09/30/24 Ibuprofen Micronized (Ibuprofen) 800 Mg Tab, 800 MG PO Q8HP PRN, #20 TAB Prov:REED BUSTOS PAC 09/30/24 Ibuprofen (Ibuprofen) 800 Mg Tab, 1 TAB PO TID, #30 TAB Prov:MAXIME VELEZ 09/14/24 Amoxicillin Trihydrate (Amoxicillin) 875 Mg Tab, 1 TAB PO BID, #20 TAB Prov:MAXIME VELEZ 09/14/24 Baclofen (Baclofen) 10 Mg Tab, 10 MG PO BID, #20 TAB Prov:MAXIME VELEZ 07/07/24 Ibuprofen (Ibuprofen) 800 Mg Tab, 1 TAB PO TID, #30 TAB Prov:MAXIME VELEZ 07/07/24 Hydrocodone-Acetaminophen (Hydrocodone Bitartrate/AC 5-325 mg) 1 Tab Tab, 1 TAB PO Q6HPRN PRN, #6 TAB As needed for severe pain Prov:VALDO ACOSTA PAC 10/14/23 Cyclobenzaprine Hcl (Cyclobenzaprine Hcl) 10 Mg Tab, 1 TAB PO Q8HR, #15 TAB as needed for pain Prov:VALDO ACOSTA PAC 10/14/23 Ibuprofen (Ibuprofen) 800 Mg Tab, 1 TAB PO TID, #30 TAB Prov:VALDO ACOSTA PAC 10/14/23 Ibuprofen Micronized (Ibuprofen) 600 Mg Tab, 1 TAB PO Q6HPRN PRN, #20 TAB As needed for pain Prov:BROOKE CARRILLO Antnoy [employer]OWER [employer] INSPECTOR 09/12/23 Ofloxacin (Otic) (FLOXIN OTIC) [address], 5 DROP OT BID for 10 Days, #10 ML Prov:BROOKE CARRILLO Q [employer] INSPECTOR 09/12/23 Amoxicillin & Pot Clavulanate (AUGMENTIN TABLET) 875 Mg Tb, 1 TAB PO BID for 10 Days, #20 TAB Prov:BROOKE CARRILLO Q [employer] INSPECT[employer] 09/12/23 Gabapentin (Gabapentin) 600 Mg Tab, 1 TAB PO BID, #30 TAB Prov:MAXIME VELEZ PA 09/08/23 Ibuprofen (Ibuprofen) 800 Mg Tab, 1 TAB PO TID, #30 TAB Prov:ROSIERUSSELLEHSAN PA 09/08/23 Baclofen (Baclofen) 10 Mg Tab, 10 MG PO TID, #15 TAB As needed for muscle spasm Prov:CARRILLOBROOKE Q [employer]OWER PLANT INSPECTOR 09/03/23 Ibuprofen Micronized (Ibuprofen) 600 Mg Tab, 1 TAB PO Q6HPRN PRN, #20 TAB As needed for mild to moderate pain Prov:LORENABROOKE Antony [employer]OWER PLANT INSPECTOR 09/03/23 Cyclobenzaprine Hcl (Cyclobenzaprine Hcl) 5 Mg Tab, 1 TAB PO QPM for 30 Days, #30 TAB 0 Refills Prov:GEORGIA TREADWELL [employer] PLANT INSPECTOR 08/03/23 Meloxicam (Meloxicam) 7.5 Mg Tab, 1 TAB PO DAILY for 30 Days, #30 TAB 0 Refills Prov:GEORGIA TREADWELL [employer] INSPECTOR 08/03/23 Cyclobenzaprine HCl (Cyclobenzaprine Hydrochlo) 10 Mg Tab, 1 TAB PO Q8HPRN PRN, #15 TAB As needed for muscle spasm Prov:LORENABROOKE Q [employer] PLANT INSPECTOR 05/21/23 Ibuprofen Micronized (Ibuprofen) 600 Mg Tab, 1 TAB PO Q6HPRN PRN, #20 TAB as needed for pain Prov:LORENABROOKE Q [employer] PLANT INSPECTOR 05/21/23 Ibuprofen (Ibuprofen) 600 Mg Tab, 1 TAB PO TID, #30 TAB As needed for pain Prov:LORENABROOKE Q [employer] PLANT INSPECTOR 02/22/23 Ijbiteqn-Zwrjhsxro-Jy (Otic) (Cortisporin Otic Soln) [address], 4 DROP OT QID for 7 Days, #1 BOTTLE 0 Refills Prov:SHIRA MARTIN 02/11/23 Ibuprofen Micronized (Ibuprofen) 800 Mg Tab, 800 MG PO Q6HP PRN, #30 TAB 0 R efills Prov:SHIRA MARTIN 02/11/23 Ibuprofen (Ibuprofen) 800 Mg Tab, 1 TAB PO TID PRN, #30 TAB 0 Refills Prov:TRAN FOURNIER 12/20/22 Cyclobenzaprine Hcl (Cyclobenzaprine Hcl) 5 Mg Tab, 1 TAB PO QPM PRN, #14 TAB 0 Refills Prov:TRAN FOURNIER 12/20/22 Cyclobenzaprine Hcl (Cyclobenzaprine Hcl) 10 Mg Tab, 1 TAB PO BID, #10 TAB as needed for musclce spasm Prov:BROOKE CARRILLO Q [employer] INS[employer] 12/13/22 Ibuprofen Micronized (MOTRIN TABLET) 600 Mg Tb, 1 TAB PO TID PRN, #20 TAB as needed for pain Prov:CARRILLOBROOKE Q [employer] PL[employer] INSPECTOR 12/13/22 Abjnhily-Brvjipggs-Mp (Otic) (Cortisporin Otic Soln) [address], 1 DROP OT QID for 10 Days, #1 DROP Prov:BROOKE CARRILLO [employer] INS[employer]OR 12/13/22 Amoxicillin & Pot Clavulanate (AUGMENTIN TABLET) 875 Mg Tb, 1 TAB PO BID for 10 Days, #20 TAB Prov:BROOKE CARRILLO Q [employer] INS[employer] 12/13/22 Fluticasone Propionate (Nasal) (Flonase Allergy Relief Ch) 50 Mcg/Act Spr, 2 SPRAYS NA BID PRN, #1 SPRAY 0 Refills Prov:TRAN FOURNIER 11/03/22 Ibuprofen (Ibuprofen) 800 Mg Tab, 1 TAB PO TID PRN, #30 TAB 0 Refills Prov:TRAN FOURNIER 11/03/22 Cyclobenzaprine Hcl (Cyclobenzaprine Hcl) 5 Mg Tab, 1 TAB PO QPM, #14 TAB 0 Refills Prov:TRAN FOURNIER 11/03/22 Pnoclcid-Vqbejjnni-Gv (Otic) (Cortisporin Otic Susp) [address], 3 DROP LEFT EAR TID for 7 Days, #10 ML Prov:TONY NGUYEN Jose DO 08/31/22 Baclofen (Baclofen) 10 Mg Tab, 10 MG PO BID, #20 TAB Prov:MAXIME VELEZ 08/19/22 Ciprofloxacin-Hydrocortisone (Cipro Hc 0.2-1 %) 1 Maryjo Maryjo, 3 DROP OT BID, #5 ML Prov:MAXIME VELEZ 08/05/22 Albuterol Sulfate (VENTOLIN MDI) 90 Mcg Ih, 2 PUFF IN Q4HPRN, #1 INH 0 Refills Prov:TRAN FOURNIER 05/25/22 Prednisone (Prednisone) 20 Mg Tab, 20 MG PO BID for 5 Days, #10 MG 0 Refills Prov:TARN FOURNIER 05/25/22 Amoxicillin & Pot Clavulanate (Amoxicillin/Potassium Cla) 875 Mg Tab, 1 TAB PO BID for 7 Days, #14 TAB 0 Refills Prov:TRAN FOURNIER 05/25/22 Ibuprofen Micronized (MOTRIN TABLET) 600 Mg Tb, 600 MG PO TID PRN for 7 Days, #21 TAB *Black box warning-NSAIDS can increase risk of IA & hypertension, GI irritation, ulceration, bleed, perferation. Do not use post cardiac surgery. Use short duration/lowest effective dose. Prov:ARAVIND HARPER MD 10/08/21 Information Source: Patient Mode of Arrival: Ambulatory Timing: Months Duration: Since onset Location of Back pain: (B) Lumbar Radiates to: Posterior: (B) Thigh Severity: Moderate Prehospital treatment: None Quality: Aching Onset: Spontaneous Circumstance: Other (fall 3 years ago) History of: Chronic Back Pain Past Medical History PAST MEDICAL HISTORY: Denies Surgical History: Denies all surgeries Family History Family History: Reviewed,noncontributory to illness Social History Smoker: Cigarettes Alcohol: Denies ETOH Use Drugs: Denies Drug Use Lives In: Home Constitutional: denies: chills, diaphoresis, fatigue, fever, malaise, sweats, weakness, others EENTM: denies: blurred vision, double vision, ear bleeding, ear discharge, ear drainage, ear pain, ear ringing, eye pain, eye redness, hearing loss, mouth pain, mouth swelling, nasal discharge, nose bleeding, nose congestion, nose pain, photophobia, tearing, throat pain, throat swelling, voice changes, others Respiratory: denies: cough, hemoptysis, orthopnea, SOB at rest, shortness of breath, SOB with excertion, stridor, wheezing, others Cardiovascular: denies: chest pain, dizzy spells, diaphoresis, Dyspnea on exertion, edema, irregular heart beat, left arm pain, lightheadedness, palpitations, PND, syncope, others Gastrointestinal: denies: abdomen distended, abdominal pain, blood streaked bowels, constipated, diarrhea, dysphagia, difficulty swallowing, hematemesis, melena, nausea, poor appetite, poor fluid intake, rectal bleeding, rectal pain, vomiting, others Genitourinary: denies: burning, dysuria, flank pain, frequency, hematuria, incontinence, penile discharge, penile sore, pain, testicle pain, testicle swelling, urgency, others Neurological: denies: dizziness, fainting, headache, left sided numbness, left sided weakness, numbness, paresthesia, pre-existing deficit, right sided numbness, right sided weakness, seizure, speech problems, tingling, tremors, weakness, others Musculoskeletal: reports: back pain; denies: gout, joint pain, joint swelling, muscle pain, muscle stiffness, neck pain, others Integumetry: denies: bruises, change in color, change in hair/nails, dryness, laceration, lesions, lumps, rash, wounds, others Allergic/Immunocompromised: denies: Difficulty Healing, Frequent Infections, Hives, Itching, others Hematologic/Lymphatic: denies: anemia, blood clots, easy bleeding, easy bruising, swollen glands, others Endocrine: denies: excessive hunger, excessive sweating, excessive thirst, excessive urination, flushing, intolerance to cold, intolerance to heat, unexplained weight gain, unexplained weight loss, others Psychiatric: denies: anxiety, bipolar disorder, depression, hopeless, panic disorder, schizophrenia, sleepless, suicidal, others All Other Systems: Reviewed and Negative Physical Exam General Appearance: No Apparent Distress, Normal HEENT: Normal ENT Inspection, Pharynx Normal, TMs Normal Neck: Full Range of Motion, Non-Tender, Normal, Normal Inspection Respiratory: Chest Non-Tender, Lungs Clear, No Accessory Muscle Use, No Respiratory Distress, Normal Breath Sounds Cardiovascular: No Edema, No JVD, No Murmur, No Gallop, Normal Peripheral Pulses, Regular Rate/Rhythm Breast Exam: Deferred Gastrointestinal: No Organomegaly, Non Tender, No Pulsatile Mass, Normal Bowel Sounds, Soft Genitalia: Deferred Pelvic: Deferred Rectal: Deferred Extremities: No calf tenderness, Normal capillary refill, Normal inspection, Normal range of motion, Non-tender, No pedal edema Musculoskeletal : Location: Bilateral Extremity Location: Back Apperance: Normal, Tenderness (Tenderness to bilateral lumbar paraspinus muscle) Neurologic: Alert, welding machine operator ultrasonic II-XII nml as Tested, No Motor Deficits, Normal Affect, Normal Mood, No Sensory Deficits Cerebellar Function: Normal Reflexes: Normal Skin: Dry, Normal Color, Warm Lymphatic: No Adenopathy Was a procedure done? Was a procedure done?: No Back Pain Differential Dx Differential Diagnosis: Musculoskeletal Pain X-Ray, Labs, Meds, VS Vital Signs Date Time Temp Pulse Resp B/P (MAP) Pulse Ox O2 Delivery O2 Flow Rate FiO2 10/15/24 15:55 98.2 93 16 116/83 (94) 94 98.2 X-Ray, Labs, Meds, VS Comment Imaging: X-rays and CT scans were reviewed and interpreted by this provider, imaging shows no fractures and no pathological disease. Pending radiology review. Laboratory: Labs reviewed and interpreted by this provider. No significant abnormalities noted. Patient has prior medical visits reviewed. Med reconciliation performed Vital signs reviewed Time of 1ST Reevaluation: 17:17 Reevaluation 1ST: Unchanged Patient Education/Counseling: Diagnosis, Treatment, Need For Follow Up (Follow up with PCP in the next 5-7 days. Follow up in the emergency department in the next 24-48 hours if symptoms worsen.) Family Education/Counseling: No Family Present Departure 1 Departure Time of Disposition: 16:34 Impression: Primary Impression: Acute exacerbation of chronic low back pain Disposition: HOME / SELF CARE / HOMELESS Condition: Fair e-Prescriptions Cyclobenzaprine Hcl (Cyclobenzaprine Hcl) 5 Mg Tab 1 TAB PO TID PRN, #30 TAB Prov: MARIE ALDRICH POWERBUILDER 10/15/24 Hydrocodone-Acetaminophen (Hydrocodone Bitartrate/AC 5-325 mg) 1 Tab Tab 1 TAB PO TID PRN, #32 TAB Prov: MARIE ALDRICH POWERBUILDER 10/15/24 Discharged With: Self Critical Care Note Critical Care Time?: No Stability Stability form required: No Heart Score Heart Score: Heart Score Response (Comments) Value History N/A 0 EKG N/A 0 Age N/A 0 Risk Factors N/A 0 Troponin N/A 0 Total 0 I personally scribed for MARIE ALDRICH ([email or web address]) on 10/15/24 at 16:24. Electronically submitted by Ricci Garcia ([email or web address]). MARIE ALDRICH Oct 15, 2024 16:24
[2024-10-15 16:40] VITALS: BP 110/78; PULSE 83; RESP 16; TEMP 98.3; O2SAT 93
[2024-10-15] MEDS ORDERED: HYDR-4902 PO (16:48)
[2024-10-15] MEDS ORDERED: CYCL-837 PO (16:48)
== END 2024-10-15 17:00 | disposition home or self-care (01) ==
LOC: ER 15:46
DX: G89.29 Other chronic pain (principal); M54.50 Low back pain, unspecified; F17.210 Nicotine dependence, cigarettes, uncomplicated; Z79.899 Other long term (current) drug therapy
CPT/HCPCS: 96372; 99284; J0696; J2919; 23650; 99152

== ENCOUNTER 2024-11-14 22:40 | Emergency (ER) | payer MEDICAID ==
[~2024-11-14] VITALS: Ht 175.3 cm; Wt 79.5 kg
[2024-11-14 23:04] VITALS: TEMP 98.3
[2024-11-14 23:17] LABS: Basophils # (auto) 0.1 10 ^3/uL (0-0.2); Eosinophils # (auto) 0.3 10 ^3/uL (0-0.8); Eosinophils % (auto) 4.8 % (0.0-7.0); Hematocrit 41.6 % (41.0-53.0); Lymphocytes # (auto) 2.1 10 ^3/uL (0.4-5.4); Lymphocytes % (auto) 29.9 % (10.0-50.0); Mean Corpuscular Hemoglobin 28.9 pg (28.0-32.0); Mean Corpuscular Hgb Conc. 33.7 g/dL (32.0-36.0); Mean Corpuscular Volume 85.6 fL (80.0-100.0); Monocytes # (auto) 0.7 10 ^3/uL (0-1.3); Monocytes % (auto) 9.4 % (0.0-12.0); Neutrophils # (auto) 3.9 10 ^3/uL (1.6-8.6); Neutrophils % (auto) 54.9 % (37.0-80.0); Platelet Count (auto) 331 10^3/uL (140-450); Red Blood Cells 4.86 10^6/uL (4.5-5.90); Red Cell Distribution Width 14.2 % (11.8-14.3); White Blood Cell 7.1 10^3/uL (4.4-10.8)
[2024-11-14] MEDS ORDERED: PRED20TA2 PO (23:21)
--- NOTE | 2024-11-14 23:22 | ED.PDOC ---
Back pain HPI HPI Comments HPI: Poor Historian. 54-year-old male homeless presents to emergency department for acute on chronic presentation of his low back pain. Patient has bilateral belt distribution lumbosacral region pain that radiates sometimes to his left lower extremity. Patient has history of sciatica. Patient has been out of his medications. He says he takes ibuprofen. Patient denies any cauda equina like symptoms. Denies any focal neurological deficits. Past Medical History: Sciatica Past Surgical History: Hernia repair REVIEW OF SYSTEMS: CONSTITUTIONAL: Denies acute: fever, diaphoresis, chills, generalized weakness. HEAD: Denies acute: headache, photophobia Eyes: Denies acute: Double vision, vision loss, eye pain, eye discharge. EARS: Denies acute: tinnitus, hearing loss, ear discharge, ear pain, THROAT: Denies acute: sore throat, swelling, difficulty swallowing , pain with swallowing, change in voice. NECK: Denies acute: neck pain, neck swelling, stiff neck. HEART: Denies acute : chest pain, palpitations, LUNGS: Denies acute: SOB, wheezing, cough, hemoptysis ABDOMEN: Denies acute: abdominal pain, Nausea, Vomiting, diarrhea, melena , hematemesis, hematochezia SKIN: Denies acute: rash, redness, lesions, itchiness. EXTREMITIES: Denies acute: calf pain, numbness, tingling, weakness, denies pain in extremity. Neuro: Denies acute: focal neurological deficit, motor or sensory focal neurological deficit, tremors, seizure like activity, confusion, dizziness, change in mental status, loss of bowel or bladder function, cauda equina like symptoms. : Denies acute: dysuria, hematuria, flank pain, increase in urinary frequency. PSYCH: Denies acute: hallucination, suicidal ideation, homicidal ideation. PHYSICAL EXAM: General: ----no----acute distress, awake and alert. Head: normocephalic, atraumatic. Neck: supple, trachea is midline, no swelling. Throat: Normal phonation. Eyes:, no erythema, no purulent discharge, no proptosis, no icterus. Heart: regular rate, regular rhythm, no significant murmur appreciated. Lungs: no apparent respiratory distress, Able to speak in full sentences. No wheezing, no rhonchi, no crackles. No stridors Clear to auscultation bilaterally. Abdomen: non tender to palpation, non distended, soft, no guarding, no rebound, + bowel sounds. Neuro: Awake, Alert, oriented to name, self, situation, follows commands GCS=15. Speech is normal. Skin: no petechia, no purpura, no cyanosis, non-pale, not jaundice. Lower extremities: --no - Pitting edema no deformity, no focal swelling, no calf TTP. Makes eye contact. moves all four extremities. Face: no apparent facial droop. No CVA tenderness to percussion bilaterally. Ambulating in the ED independently. Evaluation of the area of complaint reveals no erythema or swelling or deformity. ED COURSE: Chief Complaint: Flank Pain Time Seen by MD: 22:42 Primary Care Provider: NONE Reviewed Notes: Nurses Notes, Allergies Allergies: Coded Allergies: NO KNOWN ALLERGIES (Unverified , 10/02/22) Home Meds Active Scripts Prednisone (Prednisone) 20 Mg Tab, 20 MG PO DAILY for 7 Days, #7 TAB Prov:YOSELYN SIMPSON DO 11/14/24 Cyclobenzaprine Hcl (Cyclobenzaprine Hcl) 5 Mg Tab, 1 TAB PO TID PRN, #30 TAB Prov:MARIE ALDRICH DESIGN TECHNOLOGY PROFESSOR 10/15/24 Hydrocodone-Acetaminophen (Hydrocodone Bitartrate/AC 5-325 mg) 1 Tab Tab, 1 TAB PO TID PRN, #32 TAB Prov:MARIE ALDRICH DESIGN TECHNOLOGY PROFESSOR 10/15/24 Hydrocodone-Acetaminophen (Hydrocodone Bitartrate/AC 5-325 mg) 1 Tab Tab, 1 TAB PO Q6HP PRN, #15 TAB Prov:REED BUSTOS PAC 09/30/24 Ibuprofen Micronized (Ibuprofen) 800 Mg Tab, 800 MG PO Q8HP PRN, #20 TAB Prov:REED BUSTOS PAC 09/30/24 Ibuprofen (Ibuprofen) 800 Mg Tab, 1 TAB PO TID, #30 TAB Prov:MAXIME VELEZ 09/14/24 Amoxicillin Trihydrate (Amoxicillin) 875 Mg Tab, 1 TAB PO BID, #20 TAB Prov:MAXIME VELEZ 09/14/24 Baclofen (Baclofen) 10 Mg Tab, 10 MG PO BID, #20 TAB Prov:MAXIME VELEZ 07/07/24 Ibuprofen (Ibuprofen) 800 Mg Tab, 1 TAB PO TID, #30 TAB Prov:MAXIME VELEZ 07/07/24 Hydrocodone-Acetaminophen (Hydrocodone Bitartrate/AC 5-325 mg) 1 Tab Tab, 1 TAB PO Q6HPRN PRN, #6 TAB As needed for severe pain Prov:ACOSTAVALDO DUNNO PAC 10/14/23 Cyclobenzaprine Hcl (Cyclobenzaprine Hcl) 10 Mg Tab, 1 TAB PO Q8HR, #15 TAB as needed for pain Prov:ACOSTAVALDO DUNNO PAC 10/14/23 Ibuprofen (Ibuprofen) 800 Mg Tab, 1 TAB PO TID, #30 TAB Prov:VALDO ACOSTAO PAC 10/14/23 Ibuprofen Micronized (Ibuprofen) 600 Mg Tab, 1 TAB PO Q6HPRN PRN, #20 TAB As needed for pain Prov:BROOKE CARRILLO Q ADVERTISING CAMPAIGN MANAGER 09/12/23 Ofloxacin (Otic) (FLOXIN OTIC) [address], 5 DROP OT BID for 10 Days, #10 ML Prov:BROOKE CARRILLO Q ADVERTISING CAMPAIGN MANAGER 09/12/23 Amoxicillin & Pot Clavulanate (AUGMENTIN TABLET) 875 Mg Tb, 1 TAB PO BID for 10 Days, #20 TAB Prov:BROOKE CARRILLO Q ADVERTISING CAMPAIGN MANAGER 09/12/23 Gabapentin (Gabapentin) 600 Mg Tab, 1 TAB PO BID, #30 TAB Prov:MAXIME VELEZ 09/08/23 Ibuprofen (Ibuprofen) 800 Mg Tab, 1 TAB PO TID, #30 TAB Prov:MAXIME VELEZ 09/08/23 Baclofen (Baclofen) 10 Mg Tab, 10 MG PO TID, #15 TAB As needed for muscle spasm Prov:BROOKE CARRILLO Q ADVERTISING CAMPAIGN MANAGER 09/03/23 Ibuprofen Micronized (Ibuprofen) 600 Mg Tab, 1 TAB PO Q6HPRN PRN, #20 TAB As needed for mild to moderate pain Prov:BROOKE CARRILLO Q ADVERTISING CAMPAIGN MANAGER 09/03/23 Cyclobenzaprine Hcl (Cyclobenzaprine Hcl) 5 Mg Tab, 1 TAB PO QPM for 30 Days, #30 TAB 0 Refills Prov:GEORGIA TREADWELL ADVERTISING CAMPAIGN MANAGER 08/03/23 Meloxicam (Meloxicam) 7.5 Mg Tab, 1 TAB PO DAILY for 30 Days, #30 TAB 0 Refills Prov:GEORGIA TREADWELL ADVERTISING CAMPAIGN MANAGER 08/03/23 Cyclobenzaprine HCl (Cyclobenzaprine Hydrochlo) 10 Mg Tab, 1 TAB PO Q8HPRN PRN, #15 TAB As needed for muscle spasm Prov:BROOKE CARRILLO ADVERTISING CAMPAIGN MANAGER 05/21/23 Ibuprofen Micronized (Ibuprofen) 600 Mg Tab, 1 TAB PO Q6HPRN PRN, #20 TAB as needed for pain Prov:BROOKE CARRILLO ADVERTISING CAMPAIGN MANAGER 05/21/23 Ibuprofen (Ibuprofen) 600 Mg Tab, 1 TAB PO TID, #30 TAB As needed for pain Prov:BROOKE CARRILLO ADVERTISING CAMPAIGN MANAGER 02/22/23 Jmjhurni-Kmeauzxek-Ec (Otic) (Cortisporin Otic Soln) [address], 4 DROP OT QID for 7 Days, #1 BOTTLE 0 Refills Prov:SHIRA MARTIN 02/11/23 Ibuprofen Micronized (Ibuprofen) 800 Mg Tab, 800 MG PO Q6HP PRN, #30 TAB 0 Refills Prov:SHIRA MARTIN 02/11/23 Ibuprofen (Ibuprofen) 800 Mg Tab, 1 TAB PO TID PRN, #30 TAB 0 Refills Prov:TRAN FOURNIER 12/20/22 Cyclobenzaprine Hcl (Cyclobenzaprine Hcl) 5 Mg Tab, 1 TAB PO QPM PRN, #14 TAB 0 Refills Prov:TRAN FOURNIER 12/20/22 Cyclobenzaprine Hcl (Cyclobenzaprine Hcl) 10 Mg Tab, 1 TAB PO BID, #10 TAB as needed for musclce spasm Prov:BROOKE CARRILLO ADVERTISING CAMPAIGN MANAGER 12/13/22 Ibuprofen Micronized (MOTRIN TABLET) 600 Mg Tb, 1 TAB PO TID PRN, #20 TAB as needed for pain Prov:BROOKE CARRILLO ADVERTISING CAMPAIGN MANAGER 12/13/22 Ffmmncug-Kxoremafv-Po (Otic) (Cortisporin Otic Soln) [address], 1 DROP OT QID for 10 Days, #1 DROP Prov:BROOKE CARRILLO ADVERTISING CAMPAIGN MANAGER 12/13/22 Amoxicillin & Pot Clavulanate (AUGMENTIN TABLET) 875 Mg Tb, 1 TAB PO BID for 10 Days, #20 TAB Prov:BROOKE CARRILLO Q ADVERTISING CAMPAIGN MANAGER 12/13/22 Fluticasone Propionate (Nasal) (Flonase Allergy Relief Ch) 50 Mcg/Act Spr, 2 SPRAYS NA BID PRN, #1 SPRAY 0 Refills Prov:TRAN FOURNIER 11/03/22 Ibuprofen (Ibuprofen) 800 Mg Tab, 1 TAB PO TID PRN, #30 TAB 0 Refills Prov:TRAN FOURNIER 11/03/22 Cyclobenzaprine Hcl (Cyclobenzaprine Hcl) 5 Mg Tab, 1 TAB PO QPM, #14 TAB 0 Refills Prov:TRAN FOURNIER 11/03/22 Vtgrnelk-Hagdcljhs-Su (Otic) (Cortisporin Otic Susp) [address], 3 DROP LEFT EAR TID for 7 Days, #10 ML Prov:TONY NGUYEN DO 08/31/22 Baclofen (Baclofen) 10 Mg Tab, 10 MG PO BID, #20 TAB Prov:MAXIME VELEZ 08/19/22 Ciprofloxacin-Hydrocortisone (Cipro Hc 0.2-1 %) 1 Maryjo Maryjo, 3 DROP OT BID, #5 ML Prov:MAXIME VELEZ 08/05/22 Albuterol Sulfate (VENTOLIN MDI) 90 Mcg Ih, 2 PUFF IN Q4HPRN, #1 INH 0 Refills Prov:TRAN FOURNIER 05/25/22 Prednisone (Prednisone) 20 Mg Tab, 20 MG PO BID for 5 Days, #10 MG 0 Refills Prov:TRAN FOURNIER 05/25/22 Amoxicillin & Pot Clavulanate (Amoxicillin/Potassium Cla) 875 Mg Tab, 1 TAB PO BID for 7 Days, #14 TAB 0 Refills Prov:TRAN FOURNIER 05/25/22 Ibuprofen Micronized (MOTRIN TABLET) 600 Mg Tb, 600 MG PO TID PRN for 7 Days, #21 TAB *Black box warning-NSAIDS can increase risk of IL & hypertension, GI irritation, ulceration, bleed, perferation. Do not use post cardiac surgery. Use short duration/lowest effective dose. Prov:ARAVIND HARPER MD 10/08/21 Mode of Arrival: Ambulatory Past Medical History PAST MEDICAL HISTORY: Denies Surgical History: Denies all surgeries Family History Family History: Reviewed,noncontributory to illness Social History Smoker: Cigarettes Alcohol: Denies ETOH Use Drugs: Denies Drug Use Lives In: Home Was a procedure done? Was a procedure done?: No Back Pain Differential Dx Differential Diagnosis: Other (DDX included but not limited to Cauda Equina syndrome, lumbar radiculopathy, arthritis, disk herniation, sciatica, muscle strain, epidural abscess, transverse myelitis. Cord compression, spinal foraminal stenosis, spinal fractures, spondylosis, central canal stenosis, trauma, muscle sprain/strain, aneurysm/dissection, kidney stones, shingles, arthritis, Guillan Jefferson, neoplasm.) X-Ray, Labs, Meds, VS Vital Signs Date Time Temp Pulse Resp B/P (MAP) Pulse Ox O2 Delivery O2 Flow Rate FiO2 11/14/24 23:04 98.3 93 16 130/91 (104) 97 98.3 Lab Test 11/14/24 23:44 11/14/24 22:58 Range/Units Urine Color Light-yellow Yellow Urine Clarity Clear Clear Urine pH 6.0 5.0-9.0 Urine Specific [place] 1.023 1.001-1.035 Urine Protein Negative Negative Urine Ketones Negative Negative Urine Blood Negative Negative /uL Urine Nitrite Negative Negative Urine Bilirubin Negative Negative Urine Urobilinogen Normal Negative mg/dL Urine Leukocyte Esterase Negative Negative /uL Urine RBC 1 0 - 3 /hpf Urine Microscopic WBC < 1 0-3 /HPF Urine Squamous Epithelial Cells Few <5 /hpf Urine Bacteria None seen None Seen /hpf Urine Glucose Normal Normal mg/dL White Blood Count 7.1 4.4-10.8 10^3/uL Red Blood Count 4.86 4.5-5.90 10^6/uL Hemoglobin 14.0 13.5-17.5 g/dL Hematocrit 41.6 41.0-53.0 % Mean Corpuscular Volume 85.6 80.0-100.0 fL Mean Corpuscular Hemoglobin 28.9 28.0-32.0 pg Mean Corpuscular Hemoglobin Concent 33.7 32.0-36.0 g/dL Red Cell Distribution Width 14.2 11.8-14.3 % Platelet Count 331 140-450 10^3/uL Mean Platelet Volume 7.8 6.9-10.8 fL Neutrophils (%) (Auto) 54.9 37.0-80.0 % Lymphocytes (%) (Auto) 29.9 10.0-50.0 % Monocytes (%) (Auto) 9.4 0.0-12.0 % Eosinophils (%) (Auto) 4.8 0.0-7.0 % Basophils (%) (Auto) 1.0 0.0-2.0 % Neutrophils # (Auto) 3.9 1.6-8.6 10 ^3/uL Lymphocytes # (Auto) 2.1 0.4-5.4 10 ^3/uL Monocytes # (Auto) 0.7 0-1.3 10 ^3/uL Eosinophils # (Auto) 0.3 0-0.8 10 ^3/uL Basophils # (Auto) 0.1 0-0.2 10 ^3/uL Nucleated Red Blood Cells 0.0 % Sodium Level 143 136-145 mmol/L Potassium Level 4.0 3.5-5.1 mmol/L Chloride Level 106 98-107 mmol/L Carbon Dioxide Level 30 20-31 mmol/L Anion Gap 7 5-15 Blood Urea Nitrogen 16 9-23 mg/dL Creatinine 1.23 0.700-1.30 mg/dL Glomerular Filtration Rate Calc 71 >90 mL/min BUN/Creatinine Ratio 13.0 10.0-20.0 Serum Glucose 99 74-106 mg/dL Lactic Acid Level 0.8 0.4-2.0 mmol/L Calcium Level 9.1 8.7-10.4 mg/dL Total Bilirubin 0.9 0.2-1.0 mg/dL Aspartate Amino Transferase (AST) 18 13-40 U/L Alanine Aminotransferase (ALT) 19 7-40 U/L Alkaline Phosphatase 68 46-116 U/L Total Protein 6.8 5.7-8.2 g/dL Albumin 4.3 3.2-4.8 g/dL [address] [address] Ph: [phone] DIAGNOSTIC IMAGING Diagnostic Imaging Report : [id number] Signed PATIENT: KALPANA MITTAL ACCT: [id number] UNIT: [id number] : 1970 LOC: ER ROOM / BED: / AGE / SEX: 53 / M ADM STATUS: REG ER SERVICE 41 ORDERING PHYSICIAN: YOSELYN SIMPSON DO PROCEDURE(s): ABPL - CT AB PEL WO CON-NO ORAL OR IV REASON: flank pain ORDER NUMBER(s): [id number], ACCESSION NUMBER(s): [id number] Exam: CT CT AB PEL WO CON-NO ORAL OR IV History: flank pain Comparison Study: CT CT AB PEL WO CON-NO ORAL OR IV on DOS: 10/02/22 Technique: Multidetector spiral CT of the abdomen was performed from lung bases to pubic symphysis. Imaging was performed without IV contrast. Axial, coronal and sagittal multiplanar reformats were obtained from the axial data set by the technologist. Radiation Dose : 1. Abdomen/Pelvis: CTDIvol 6.12 mGy, DLP 315.17 mGy*cm. Findings: Evaluation of solid organs is limited due to lack of intravenous contrast use. Lung Bases: No abnormality demonstrated. Liver: Liver is normal in size. No focal lesions noted. Gallbladder and Biliary Tree: No abnormality demonstrated. Spleen: No abnormality demonstrated. Pancreas: No abnormality demonstrated. Adrenal Glands: No abnormality demonstrated. Kidneys: No abnormality demonstrated. No evidence of renal calculus or hydro u reteronephrosis. Cyst measuring up to 4.8 cm noted in the upper pole of the left kidney. Bladder: Grossly unremarkable for degree of distention. Bowel: Stomach appears grossly unremarkable. No abnormally dilated or thick- walled loops of large or small bowel noted. Appendix is not visualized; however, no secondary findings of acute appendicitis identified. Ascites: Absent Lymphadenopathy: No evidence of lymphadenopathy. Abdominal Wall and Mesentery: Unremarkable. Vasculature: Unremarkable. Pelvic Organs: Unremarkable. Musculoskeletal: No bony lesions or fracture. Advanced degenerative disc disease at L5-S1. IMPRESSION: No abnormality demonstrated. Radiation optimization: All CT scans at this facility use at least one of these dose optimization techniques: automated exposure control mA and/or kV adjustment per patient size (includes targeted exams where dose is matched to clinical indication) or iterative reconstruction. ATED BY: JULIUS ROE MD DICTATED DATE/TIME: 11/14/242321 SIGNED BY: JULIUS ROE MD SIGNED DATE/TIME: 11/14/242321 CC: Time of 1ST Reevaluation: 02:57 Reevaluation 1ST: Improved Patient Education/Counseling: Diagnosis, Treatment Family Education/Counseling: No Family Present Comments Patient presented with the above HPI.---low back pain---workup was initiated. patient was found with the above mentioned diagnosis. the following medications were ordered: please refer to order lists of meds and tests obtained by myself Dr. Simpson. Patient ED course and VS have been stabilized. Patient has been reassessed in the ED and remained in a stable condition. Pertinent incidental findings were discussed with the patient and/or family. Patient/family voices understanding and is agreeable with plan. Patient has been observed in the ED adequate length of time to insure improvement/stability. Escalation of care considered: Consideration of escalation to observation or admission Patient was DISCHARGED home in a stable condition. All the reports of any imaging studies that were ordered by myself were reviewed by myself. Departure 1 Departure Time of Disposition: 23:20 Impression: Primary Impression: Chronic low back pain Disposition: HOME / SELF CARE / HOMELESS Condition: Stable Additional Instructions: Additional instructions: You MUST follow-up with your primary care/family doctor in 1 to 2 days. If you are unable to see your primary care/family doctor, please return to our emergency room for re-assessment and re-evaluation in 1 to 2 days. Return to the emergency room here in our facility or to the nearest ER [facility] if your symptoms change or worsen. CONSULTATIONS: you MUST Follow-up for consultation as soon as possible with: -[facility] spine doctor in 1-2 days. Please call for appointment. You MUST call the consultants office yourself to make an appointment. You may need to arrange that through your insurance and/or your primary/family doctor. If you are unable to see the [employer] sales consultant in 1 to 2 days, you must return to our emergency room (or any other ER of your choice) for re-assessment and re- evaluation. Adequate fluid hydration. Use afbb-rns-mynuvjv Tylenol ibuprofen with food as instructed for pain control. [address] [address] Ph: [phone] DIAGNOSTIC IMAGING Diagnostic Imaging Report : [id number] Signed PATIENT: KALPANA MITTAL ACCT: [id number] UNIT: [id number] : 1970 LOC: ER ROOM / BED: / AGE / SEX: 53 / M ADM STATUS: REG ER SERVICE [id number] ORDERING PHYSICIAN: YOSELYN SIMPSON DO PROCEDURE(s): ABPL - CT AB PEL WO CON-NO ORAL OR IV REASON: flank pain ORDER NUMBER(s): [id number], ACCESSION NUMBER(s): [id number] Exam: CT CT AB PEL WO CON-NO ORAL OR IV History: flank pain Comparison Study: CT CT AB PEL WO CON-NO ORAL OR IV on DOS: 10/02/22 Technique: Multidetector spiral CT of the abdomen was performed from lung bases to pubic symphysis. Imaging was performed without IV contrast. Axial, coronal and sagittal multiplanar reformats were obtained from the axial data set by the technologist. Radiation Dose : 1. Abdomen/Pelvis: CTDIvol 6.12 mGy, DLP 315.17 mGy*cm. Findings: Evaluation of solid organs is limited due to lack of intravenous contrast use. Lung Bases: No abnormality demonstrated. Liver: Liver is normal in size. No focal lesions noted. Gallbladder and Biliary Tree: No abnormality demonstrated. Spleen: No abnormality demonstrated. Pancreas: No abnormality demonstrated. Adrenal Glands: No abnormality demonstrated. Kidneys: No abnormality demonstrated. No evidence of renal calculus or hydro ureteronephrosis. Cyst measuring up to 4.8 cm noted in the upper pole of the left kidney. Bladder: Grossly unremarkable for degree of distention. Bowel: Stomach appears grossly unremarkable. No abnormally dilated or thick- walled loops of large or small bowel noted. Appendix is not visualized; however, no secondary findings of acute appendicitis identified. Ascites: Absent Lymphadenopathy: No evidence of lymphadenopathy. Abdominal Wall and Mesentery: Unremarkable. Vasculature: Unremarkable. Pelvic Organs: Unremarkable. Musculoskeletal: No bony lesions or fracture. Advanced degenerative disc disease at L5-S1. IMPRESSION: No abnormality demonstrated. Radiation optimization: All CT scans at this facility use at least one of these dose optimization techniques: automated exposure control mA and/or kV adjustment per patient size (includes targeted exams where dose is matched to clinical indication) or iterative reconstruction. ATED BY: JULIUS ROE MD DICTATED DATE/TIME: 11/14/242321 SIGNED BY: JULIUS ROE MD SIGNED DATE/TIME: 11/14/242321 CC: e-Prescriptions Prednisone (Prednisone) 20 Mg Tab 20 MG PO DAILY for 7 Days, #7 TAB Prov: YOSELYN SIMPSON DO 11/14/24 Discharged With: Self Critical Care Note Critical Care Time?: No Heart Score Heart Score: Heart Score Response (Comments) Value History N/A 0 EKG N/A 0 Age N/A 0 Risk Factors N/A 0 Troponin N/A 0 Total 0 YOSELYN SIMPSON DO November 14, 2024 23:22
--- NOTE | 2024-11-14 23:25 | DVH ---
Exam: CT CT AB PEL WO CON-NO ORAL OR IV History: flank pain Comparison Study: CT CT AB PEL WO CON-NO ORAL OR IV on DOS: 10/02/22 Technique: Multidetector spiral CT of the abdomen was performed from lung bases to pubic symphysis. Imaging was performed without IV contrast. Axial, coronal and sagittal multiplanar reformats were ob tained from the axial data set by the technologist. Radiation Dose : 1. Abdomen/Pelvis: CTDIvol 6.12 mGy, DLP 315.17 mGy*cm. Findings: Evaluation of solid organs is limited due to lack of intravenous contrast use. Lung Bases: No abnormality demonstrated. Liver: Liver is normal in size. No focal lesions noted. Gallbladder and Biliary Tree: No abnormality demonstrated. Spleen: No abnormality demonstrated. Pancreas: No abnormality demonstrated. Adrenal Glands: No abnormality demonstrated. Kidneys: No abnormality demonstrated. No evidence of renal calculus or hydro ureteronephrosis. Cyst m easuring up to 4.8 cm noted in the upper pole of the left kidney. Bladder: Grossly unremarkable for degree of distention. Bowel: Stomach appears grossly unremarkable. No abnormally dilated or thick-walled loops of large or small bowel noted. Appendix is not visualized; however, no secondary findings of acute appendicitis identified. Ascites: Absent Lymphadenopathy: No evidence of lymphadenopathy. Abdominal Wall and Mesentery: Unremarkable. Vasculature: Unremarkable. Pelvic Organs: Unremarkable. Musculoskeletal: No bony lesions or fracture. Advanced degenerative disc disease at L5-S1. IMPRESSION: No abnormality demonstrated. Radiation optimization: All CT scans at this facility use at least one of these dose optimization alexey hniques: automated exposure control mA and/or kV adjustment per patient size (includes targeted exam s where dose is matched to clinical indication) or iterative reconstruction.
[2024-11-14 23:37] LABS: Alanine Aminotransferase 19 U/L (7-40); Albumin 4.3 g/dL (3.2-4.8); Alkaline Phosphatase 68 U/L (46-116); Anion Gap 7 (5-15); Aspartate Aminotransferase 18 U/L (13-40); Blood Urea Nitrogen 16 mg/dL (9-23); Calcium 9.1 mg/dL (8.7-10.4); Carbon Dioxide 30 mmol/L (20-31); Chloride 106 mmol/L (98-107); Glucose 99 mg/dL (74-106); Sodium 143 mmol/L (136-145); Total Protein 6.8 g/dL (5.7-8.2)
[2024-11-14 23:38] LABS: Bilirubin, Total 0.9 mg/dL (0.2-1.0)
[2024-11-14 23:47] LABS: Urine Bacteria None Seen /hpf (None Seen)
[2024-11-15 00:23] LABS: Urine Blood Negative /uL (Negative); Urine Clarity Clear (Clear); Urine Color Light-Yellow (Yellow); Urine Protein, UAD Negative (Negative); Urine Specific Gravity 1.023 (1.001-1.035); Urine Squamous Epithelial Cell FEW /hpf (<5); Urine Urobilinogen Normal (Negative); Urine WBC < 1 /HPF (0-3)
[2024-11-15] MEDS: KETOROLAC TROMETH 60MG/2ML VIAL IM ONE (05:13)
[2024-11-15] MEDS: DexAMETHasone SOD PHOS 10MG/1ML VIAL INJ IM ONE (05:13)
[2024-11-15] MEDS: HYDROcodone-ACET 5/325MG TAB PO ONE (05:13)
[2024-11-15 05:18] VITALS: BP 148/98; PULSE 73; RESP 16; O2SAT 100
== END 2024-11-15 05:20 | disposition home or self-care (01) ==
LOC: ER 22:40
DX: M54.50 Low back pain, unspecified (principal); G89.29 Other chronic pain; F17.210 Nicotine dependence, cigarettes, uncomplicated; Z98.890 Other specified postprocedural states
CPT/HCPCS: 36415; 74176; 80053; 81001; 83605; 85025; 96372; 99285; J1100; J1885